=== PATIENT | female | born 1935 | race Caucasian/White ===

== ENCOUNTER 2016-12-26 22:04 | Emergency (ER) | payer MEDICARE, OTHER ==
[~2016-12-26] VITALS: Ht 160 cm; Wt 77.0 kg
[~2016-12-26 22:04] MED LIST: ALPR.25 PO; ARIC5TAB PO; BETH10TA PO; CARB25TA PO; CYMB30CA PO; DABI150 PO; GABA100C4 PO; LEVO75TA3 PO; MULT400T OR; TAB-TAB PO; VITA500S3 PO
[2016-12-26 22:15] VITALS: BP 128/68; PULSE 60; RESP 18; TEMP 97.4; O2SAT 98
[2016-12-26] MEDS ORDERED: LEVO75TA3 PO (22:30)
[2016-12-26] MEDS ORDERED: DULO1CAP2 PO (22:30)
[2016-12-26] MEDS ORDERED: MULT400T PO (22:30)
[2016-12-26] MEDS ORDERED: PRAD150C PO (22:30)
[2016-12-26] MEDS ORDERED: BETH25TA2 PO (22:30)
[2016-12-26] MEDS ORDERED: ALPR0.25 PO (22:36)
[2016-12-26] MEDS ORDERED: DONE10TA7 PO (22:36)
[2016-12-26] MEDS ORDERED: ROPI0.25 PO (22:36)
[2016-12-26] MEDS ORDERED: GABA100C4 PO (22:36)
[2016-12-26] MEDS ORDERED: MULT1CHW70 (22:36)
[2016-12-26] MEDS ORDERED: VITA500T49 PO (22:36)
[2016-12-26] MEDS ORDERED: CARB25TA9 PO (22:36)
--- NOTE | 2016-12-26 22:56 | PD ---
HPI Chief Complaint: Fall Time Seen by Provider: 22:43 Travel History International Travel<30 days: No Contact w/Intl Traveler<30days: No Traveled to known affect area: No History of Present Illness HPI The patient is an 82-year-old female that suffered a non-witnessed fall at [facility]. She hit the right side of her face. She complains of bilateral knee pain as well as right facial and some slight neck pain. She has a history of Parkinson's. She falls approximately once a month. She has no new focal neurologic change. She walks with a walker. PFSH Past Medical History Hx Anticoagulant Therapy: Yes (pradaxa) Atrial Fibrillation: Yes Autoimmune Disease: No Blood Disorders: No Heart Rhythm Problems: Yes Cancer: No Cardiac Catheterization: Yes Cardiovascular Problems: Yes (afib) Diabetes: No Diminished Hearing: No Hiatal Hernia: Yes Hypertension: Yes Psychiatric: No Immunizations Current: No Seizures: No ?: Not Past Surgical History Abdominal Surgery: Yes Appendectomy: Yes Cholecystectomy: Yes Coronary Stent: Yes Eye Surgery: Yes (EYE SURG TO RT EYE.CATARACT REPLACEMENT BILAT.) Genitourinary Surgery: No Gynecologic Surgery: Yes Hysterectomy: Yes Pacemaker: No Social History Alcohol Use: No Tobacco Use: No Substance Use: No Allergies-Medications (Allergen,Severity, Reaction): Coded Allergies: No Known Allergies (Verified , 12/26/16) Reported Meds & Prescriptions Reported Meds & Active Scripts Active Reported Multivitamin Adult (Multiple Vitamins W/ Minerals) 1 Chw Chw Vitamin B12 (Cyanocobalamin) 500 Mcg Tab 500 Mcg PO DAILY Ropinirole 0.25 Mg Tab 0.25 Mg PO TID Alprazolam 0.25 Mg Tab 0.25 Mg PO DAILY PRN Gabapentin 100 Mg Cap 200 Mg PO BID Donepezil 10 Mg Tab 10 Mg PO BID Carbidopa-Levodopa 25-100 Mg Tab 1 Tab PO Q8HR Dul[address] (Duloxetine HCl) 30 Mg Capdr 30 Mg PO DAILY Bethanechol 25 Mg Tab 12.5 Mg PO TID Levothyroxine (Levothyroxine Sodium) 75 Mcg Tab 75 Mcg PO DAILY Multaq (Dronedarone) 400 Mg Tab 400 Mg PO BID Pradaxa (Dabigatran) 150 Mg Cap 150 Mg PO BID Review of Systems Except as stated in HPI: all other systems reviewed are Neg Physical Exam Narrative GENERAL: The patient is alert, oriented 3 in no apparent distress. Her vital signs are normal. SKIN: Warm and dry. There are 2 abrasions, one on the right forehead and another on the right malar area. HEAD: Atraumatic. Normocephalic. Neither raccoon eyes nor bond sign is present. EYES: Pupils equal and round. No scleral icterus. No injection or drainage. ENT: No nasal bleeding or discharge. Mucous membranes pink and moist. NECK: Trachea midline. No JVD. No neck tenderness nor deformity is noted. CARDIOVASCULAR: Regular rate and rhythm. No murmur appreciated. RESPIRATORY: No accessory muscle use. Clear to auscultation. Breath sounds equal bilaterally. GASTROINTESTINAL: Abdomen soft, non-tender, nondistended. Hepatic and splenic margins not palpable. MUSCULOSKELETAL: No obvious deformities. No clubbing. No cyanosis. No edema. The left knee has slight contusion anteriorly around the patella. The right knee shows no contusion or swelling. There is tenderness on the anterior portion of both knees but no deformity is noted. On both knees, collaterals, drawer and Shell show intact ligaments. NEUROLOGICAL: Awake and alert. No obvious cranial nerve deficits. Motor grossly within normal limits. Normal speech. PSYCHIATRIC: Appropriate mood and affect; insight and judgment normal. Data Data Last Documented VS Vital Signs Date Time Temp Pulse Resp B/P Pulse Ox O2 Delivery O2 Flow Rate FiO2 12/26/16 22:15 97.4 60 18 128/[address] Brain W/O Iv Contrast(Rout) (12/26/16 22:43) Ct Cerv Spine W/O Contrast (12/26/16 22:43) Knee, Ltd (1 Or 2vws) (12/26/16 22:43) Knee, Complete (4vws) (12/26/16 22:43) [facility] Medical Decision Making Medical Screen Exam Complete: Yes Emergency Medical Condition: Yes Medical Record Reviewed: Yes Interpretation(s) X-rays of both knees are normal. The CT scan of the cervical spine and brain is normal. Differential Diagnosis Fracture face, intracranial bleed, cervical spine fracture, cervical spine dislocation, multiple contusions of face, fracture knees, contusion knees Narrative Course The patient has multiple contusions of the face and knees. No evidence of fracture is found. No evidence of dislocation of the cervical spine is found. Diagnosis Primary Impression: Multiple contusions Additional Impression: Parkinson's disease dementia Additional Instructions: As we discussed, all of the x-rays/CT scans are normal. She does fall on a monthly basis and the senior care may work on changing the environment/ lighting or reasons she loses balance and falls. Follow-up with her primary care physician. Med/Other Pt SpecificInfo: No Change to Meds Disposition: 03 DISCHARGE TO SNF Condition: Stable Tino Lezama MD Dec 26, 2016 22:56
--- NOTE | 2016-12-26 23:09 | RADHPO ---
EXAM DATE/TIME: 12/26/2016 22:52 [facility] COMPARISON: No previous studies available for comparison. INDICATIONS : Right knee pain after falling on knee. MEDICAL HISTORY : None. SURGICAL HISTORY : None. ENCOUNTER: Initial ACUITY: 1 day PAIN SCORE: 4/10 LOCATION: Right anterior knee. FINDINGS: There is mild osteoarthritis of the knee without evidence for fracture or effusion. No dislocation. CONCLUSION: No acute disease. Brian cOonnor MD on December 26, 2016 at 23:07 Board Certified Radiologist. This report was verified electronically.
--- NOTE | 2016-12-26 23:10 | RADHPO ---
EXAM DATE/TIME: 12/26/2016 22:54 [facility] COMPARISON: KNEE RIGHT LTD (1 OR 2 VWS), December 26, 2016, 22:52. INDICATIONS : Left knee pain after falling on knee. MEDICAL HISTORY : None. SURGICAL HISTORY : None. ENCOUNTER: Initial ACUITY: 1 day PAIN SCORE: 4/10 LOCATION: Left knee. FINDINGS: There is mild osteoarthritis without evidence for fracture or dislocation. No effusion. CONCLUSION: No acute disease. Brian Oconnor MD on December 26, 2016 at 23:07 Board Certified Radiologist. This report was verified electronically.
--- NOTE | 2016-12-26 23:33 | RADHPO ---
EXAM DATE/TIME: 12/26/2016 23:04 [facility] COMPARISON: CT BRAIN W/O CONTRAST, March 09, 2016, 23:21. INDICATIONS : Fall. Right sided head and neck trauma. RADIATION DOSE: 61.2 CTDIvol (mGy) MEDICAL HISTORY : Hypertension. Afib. SURGICAL HISTORY : Coronary artery stent. Bilateral cataract replacement. ENCOUNTER: Initial ACUITY: 1 day PAIN SCALE: 6/10 LOCATION: Right cranial TECHNIQUE: Multiple contiguous axial images were obtained of the head. Using automated exposure control and adj ustment of the mA and/or kV according to patient size, radiation dose was kept as low as reasonably a chievable to obtain optimal diagnostic quality images. FINDINGS: Mild atrophy and patchy white matter disease is stable. No hemorrhage, infarct, or mass. No fractures . CONCLUSION: No acute disease. Brian Oconnor MD on December 26, 2016 at 23:31 Board Certified Radiologist. This report was verified electronically.
--- NOTE | 2016-12-26 23:41 | RADHPO ---
EXAM DATE/TIME: 12/26/2016 23:04 [facility] COMPARISON: CT CERVICAL SPINE W/O CONTRAST, March 09, 2016, 23:21. INDICATIONS : Fall. Right sided head and neck trauma. RADIATION DOSE: 26.45 CTDIvol (mGy) MEDICAL HISTORY : Hypertension. Afib. SURGICAL HISTORY : Coronary artery stent. ENCOUNTER: Initial ACUITY: 1 day PAIN SCALE: 7/10 LOCATION: Right neck TECHNIQUE: Volumetric scanning of the cervical spine was performed. Multiplanar reconstructions in the sagittal, coronal and oblique axial planes were performed. Using automated exposure control and adjustment o f the mA and/or kV according to patient size, radiation dose was kept as low as reasonably achievable to obtain optimal diagnostic quality images. FINDINGS: Grade 1 anterolisthesis of C4 on C5 again seen appear severe displacement at C5-6 and C6-7. No prever tebral soft tissue swelling or compression deformity. Multilevel osteophyte formation is seen at C5-C 7. Odontoid process is intact. Uncovertebral hypertrophy at C5-6 and C6-7 noted. The carotid artery c alcifications are noted bilaterally. Broad-based protrusion at C3-4 with mild canal stenosis. CONCLUSION: Degenerative changes are seen without evidence for acute fracture. Brian Oconnor MD on December 26, 2016 at 23:38 Board Certified Radiologist. This report was verified electronically.
[2016-12-27 00:05] VITALS: BP 122/68
== END 2016-12-27 00:05 ==
LOC: PHEFT 22:04
DX: S00.83XA Contusion of other part of head, initial encounter (principal); S80.02XA Contusion of left knee, initial encounter; S80.01XA Contusion of right knee, initial encounter; M54.2 Cervicalgia; G20 Parkinson's disease; F02.80 Dementia in other diseases classified elsewhere, unspecified severity, without behavioral disturbance, psychotic disturbance, mood disturbance, and anxiety; I10 Essential (primary) hypertension; I48.91 Unspecified atrial fibrillation; Z79.01 Long term (current) use of anticoagulants; W19.XXXA Unspecified fall, initial encounter; Y92.129 Unspecified place in nursing home as the place of occurrence of the external cause
CPT/HCPCS: 70450; 72125; 73560; 73564

== ENCOUNTER 2017-04-03 11:06 | Emergency (ER) | payer MEDICARE, OTHER ==
[~2017-04-03] VITALS: Ht 162.6 cm; Wt 65.0 kg
[~2017-04-03 11:06] MED LIST changes: -ALPR.25 PO; +ALPR0.25 PO; -ARIC5TAB PO; -BETH10TA PO; +BETH25TA2 PO; -CARB25TA PO; +CARB25TA9 PO; -CYMB30CA PO; -DABI150 PO; +DONE10TA7 PO; +DULO1CAP2 PO; +MULT1CHW70; -MULT400T OR; +MULT400T PO; +PRAD150C PO; +ROPI0.25 PO; -TAB-TAB PO; -VITA500S3 PO; +VITA500T49 PO
[2017-04-03 11:08] VITALS: BP 87/61; PULSE 90; RESP 16; TEMP 98.1; O2SAT 96
[2017-04-03] MEDS ORDERED: MULT-65 PO (11:37)
[2017-04-03] MEDS ORDERED: CARB25TA12 PO (11:37)
[2017-04-03 11:44] VITALS: BP 76/52
[2017-04-03 12:03] VITALS: BP 90/54
--- NOTE | 2017-04-03 12:33 | PD ---
HPI Chief Complaint: Injury Time Seen by Provider: 11:19 Travel History International Travel<30 days: No Contact w/Intl Traveler<30days: No Traveled to known affect area: No History of Present Illness HPI 81 F arrives with right forearm and hand swelling. She experienced a mechanica fall yesterday. There is no head trauma or loss of consciousness. Patient also complains of pain in the hips bilaterally. Normally she ambulates with the walker. Evidently her toes became stuck underneath the guard rail leading to her fall backwards. The patient does not remember if she fell onto an outstretched hand. There is minimal pain and swelling in the region of the DRUJ on the right side. Daughter states the patient's blood pressure is low in the mornings. Pt takes Pradaxa for atrial fibrillation. PFSH Past Medical History Hx Anticoagulant Therapy: Yes (PRADAXA) Atrial Fibrillation: Yes Autoimmune Disease: No Blood Disorders: No Heart Rhythm Problems: Yes Cancer: No Cardiac Catheterization: Yes Cardiovascular Problems: Yes (afib) Cerebrovascular Accident: Yes (CVA) Diabetes: No Diminished Hearing: No Hiatal Hernia: Yes Hypertension: Yes Psychiatric: No Immunizations Current: No Seizures: No ?: Not Past Surgical History Abdominal Surgery: Yes Appendectomy: Yes Cholecystectomy: Yes Coronary Stent: Yes Eye Surgery: Yes (EYE SURG TO RT EYE.CATARACT REPLACEMENT BILAT.) Genitourinary Surgery: No Gynecologic Surgery: Yes Hysterectomy: Yes Pacemaker: No Social History Alcohol Use: No Tobacco Use: No Substance Use: No Allergies-Medications (Allergen,Severity, Reaction): Coded Allergies: No Known Allergies (Verified , 04/03/17) Reported Meds & Prescriptions Reported Meds & Active Scripts Active Reported Multi-Vitamin Daily (Multiple Vitamin) 1 Tab Tab 1 Tab PO DAILY Carbidopa-Levodopa 25-250 Mg Tab 1 Tab PO Q8HR Vitamin B12 (Cyanocobalamin) 500 Mcg Tab 500 Mcg PO DAILY Ropinirole 0.25 Mg Tab 0.25 Mg PO TID Alprazolam 0.25 Mg Tab 0.125 Mg PO DAILY PRN Gabapentin 100 Mg Cap 200 Mg PO BID Donepezil 10 Mg Tab 10 Mg PO BID Duloxetine DR (Duloxetine HCl) 30 Mg Capdr 30 Mg PO DAILY Bethanechol 25 Mg Tab 12.5 Mg PO TID Levothyroxine (Levothyroxine Sodium) 75 Mcg Tab 75 Mcg PO DAILY Multaq (Dronedarone) 400 Mg Tab 400 Mg PO BID Pradaxa (Dabigatran) 150 Mg Cap 150 Mg PO BID Review of Systems Except as stated in HPI: all other systems reviewed are Neg Physical Exam Narrative GENERAL: 81-year-old female pleasant well-nourished well-developed SKIN: Skin tear along proximal radial aspect of R forearm, approx 6cm long by 3cm wide. Minimal generalized swelling distal forearm in and about DRUJ and dorsal hand. No snuffbox tenderness. HEAD: Atraumatic. Normocephalic. EYES: Pupils equal and round. No scleral icterus. No injection or drainage. ENT: No nasal bleeding or discharge. Mucous membranes pink and moist. NECK: Trachea midline. No JVD. CARDIOVASCULAR: Regular rate and rhythm. No murmur appreciated. RESPIRATORY: No accessory muscle use. Clear to auscultation. Breath sounds equal bilaterally. GASTROINTESTINAL: Abdomen soft, non-tender, nondistended. Hepatic and splenic margins not palpable. MUSCULOSKELETAL: No obvious deformities. No clubbing. No cyanosis. No edema. No tenderness with axial load. NEUROLOGICAL: Awake and alert. No obvious cranial nerve deficits. Motor grossly within normal limits. Normal speech. PSYCHIATRIC: Appropriate mood and affect; insight and judgment normal. Data Data Last Documented VS Vital Signs Date Time Temp Pulse Resp B/P Pulse Ox O2 Delivery O2 Flow Rate FiO2 04/03/17 12:03 90/54 04/03/17 11:08 98.1 90 16 96 VS reviewed Orders Forearm (2vws) (04/03/17 11:29) Hand, Complete ([id number]) (04/03/17 11:29) Ice/Cold Pack (04/03/17 11:29) Pelvis, Ap Only (Routine) (04/03/17 ) MDM Medical Decision Making Medical Screen Exam Complete: Yes Emergency Medical Condition: Yes Medical Record Reviewed: Yes Differential Diagnosis R forearm fracture, hand fracture, pelvis fracture, hip fracture Narrative Course Last 24 hours Impressions Radius/Ulna X-Ray 04/03/17 1129 Signed Impressions: Service Date/Time: Monday, April 03, 2017 11:49 - CONCLUSION: No acute disease. Chandler Deutsch MD Hand X-Ray 04/03/17 1129 Signed Impressions: Service Date/Time: Monday, April 03, 2017 11:46 - CONCLUSION: No acute disease. Chandler Deutsch MD Pelvis X-Ray 04/03/17 0000 Signed Impressions: Service Date/Time: Monday, April 03, 2017 11:52 - CONCLUSION: No acute disease. Chandler Deutsch MD The patient is resting comfortably and feels better, is alert and in no distress. The patients results and examination findings were discussed. The repeat examination is unremarkable and benign. The history, exam, diagnostic testing, and current condition do not suggest any significant pathology to warrant further testing, continued ED treatment, admission, or surgical evaluation at this point. The vital signs have been stable. The patient does not have uncontrollable pain, intractable vomiting, or other significant symptoms. The patient's condition is stable and appropriate for discharge. The patient will pursue further outpatient evaluation with a primary care physician or other designated or consulting physician as indicated in the discharge instructions. The patient expressed understanding and was agreeable with this plan. Hypotension is normal for patient according to daughter. Trending of BP over last five years reveals multiple episodes of significant hypotension c/w today's presentation. Diagnosis Primary Impression: Fall Qualified Code: W19.XXXA - Fall, initial encounter Additional Impression: Contusion Qualified Code: S50.11XA - Contusion of right forearm, initial encounter Referrals: DR MARTINEZ 2 days Additional Instructions: You have a choice when it comes to health care, and we are glad that you chose [facility]. Hopefully, we have met your expectations on today's visit. You are welcome to return to [facility] at any time, as we are committed to meeting the health care needs of our community. Med/Other Pt SpecificInfo: No Change to Meds Disposition: 01 DISCHARGE HOME Condition: Stable Willy Stokes MD Apr 03, 2017 12:33
--- NOTE | 2017-04-03 12:36 | RADRPT ---
EXAM DATE/TIME: 04/03/2017 11:49 [facility] COMPARISON: No previous studies available for comparison. INDICATIONS : Fell, right forearm pain MEDICAL HISTORY : parkinsons SURGICAL HISTORY : None. ENCOUNTER: Initial ACUITY: 1 day PAIN SCORE: 3/10 LOCATION: Right forearm FINDINGS: Two view examination of the right forearm demonstrates no evidence of fracture or dislocation. Bony mineralization is normal. The soft tissue structures are intact. CONCLUSION: No acute disease. Chandler Deutsch MD on April 03, 2017 at 12:34 Board Certified Radiologist. This report was verified electronically.
--- NOTE | 2017-04-03 12:36 | RADRPT ---
EXAM DATE/TIME: 04/03/2017 11:46 [facility] COMPARISON: No previous studies available for comparison. INDICATIONS : Fell, hand pain MEDICAL HISTORY : parkinsons SURGICAL HISTORY : None. ENCOUNTER: Initial ACUITY: 1 day PAIN SCORE: 3/10 LOCATION: Right hand FINDINGS: Three view examination of the right hand demonstrates no soft tissue swelling, dislocation, or fractu re. The carpal bones appear intact. The interphalangeal and metacarpophalangeal joints are intact. Bony mineralization is normal. CONCLUSION: No acute disease. Chandler Deutsch MD on April 03, 2017 at 12:31 Board Certified Radiologist. This report was verified electronically.
--- NOTE | 2017-04-03 12:37 | RADRPT ---
EXAM DATE/TIME: 04/03/2017 11:52 [facility] COMPARISON: PELVIS AP ONLY, March 09, 2016, 23:07. INDICATIONS : Fell, pelvic area pain MEDICAL HISTORY : parkinsons SURGICAL HISTORY : None. ENCOUNTER: Initial ACUITY: 1 day PAIN SCORE: 3/10 LOCATION: Bilateral pelvis FINDINGS: A single frontal view of the pelvis demonstrates no evidence of fracture. The bony pelvic ring is in tact. Bony mineralization is normal. The soft tissues are intact. There is degenerative change in the lower lumbar spine. CONCLUSION: No acute disease. Chandler Deutsch MD on April 03, 2017 at 12:34 Board Certified Radiologist. This report was verified electronically.
== END 2017-04-03 13:06 | disposition home or self-care (01) ==
LOC: PHED 11:06
DX: S50.11XA Contusion of right forearm, initial encounter (principal); W19.XXXA Unspecified fall, initial encounter; I48.91 Unspecified atrial fibrillation; Z79.01 Long term (current) use of anticoagulants; Z86.73 Personal history of transient ischemic attack (TIA), and cerebral infarction without residual deficits; I10 Essential (primary) hypertension
CPT/HCPCS: 72170; 73090; 73130; 99284

== ENCOUNTER 2017-04-15 19:38 | Inpatient (IN) | payer MEDICARE, OTHER ==
[~2017-04-15] VITALS: Ht 152.4 cm; Wt 70.8 kg
[~2017-04-15 19:38] MED LIST changes: +CARB25TA12 PO; -CARB25TA9 PO; +MULT-65 PO; -MULT1CHW70
[2017-04-15 20:02] VITALS: BP 92/59; PULSE 79; RESP 18; TEMP 98.5; O2SAT 93
--- NOTE | 2017-04-15 20:24 | PD ---
HPI Chief Complaint: GI Complaint Time Seen by Provider: 20:17 Travel History International Travel<30 days: No Contact w/Intl Traveler<30days: No Traveled to known affect area: No History of Present Illness HPI This 81-year-old female is brought in because of rectal bleeding. She resides at [place]. She has a history of Parkinson's disease. She has a history of atrial fibrillation and is on Pradaxa. He has had some trouble with hemorrhoids in the past. She has had some bright red blood per rectum today. This has been persistent for several hours. She is not having any abdominal pain. She had a colonoscopy 5 years ago which was normal. Her son says she has been hallucinating recently PFSH Past Medical History Hx Anticoagulant Therapy: Yes (PRADAXA) Atrial Fibrillation: Yes Autoimmune Disease: No Blood Disorders: No Heart Rhythm Problems: Yes Cancer: No Cardiac Catheterization: Yes Cardiovascular Problems: Yes (afib) Cerebrovascular Accident: Yes (CVA) Diabetes: No Diminished Hearing: No Hiatal Hernia: Yes Hypertension: Yes Psychiatric: No Immunizations Current: No Seizures: No Past Surgical History Abdominal Surgery: Yes Appendectomy: Yes Cholecystectomy: Yes Coronary Stent: Yes Eye Surgery: Yes (EYE SURG TO RT EYE.CATARACT REPLACEMENT BILAT.) Genitourinary Surgery: No Gynecologic Surgery: Yes Hysterectomy: Yes Pacemaker: No Social History Alcohol Use: No Tobacco Use: No Substance Use: No Allergies-Medications (Allergen,Severity, Reaction): Coded Allergies: No Known Allergies (Verified , 04/03/17) Reported Meds & Prescriptions Reported Meds & Active Scripts Active Reported Multi-Vitamin Daily (Multiple Vitamin) 1 Tab Tab 1 Tab PO DAILY Carbidopa-Levodopa 25-250 Mg Tab 1 Tab PO Q8HR Vitamin B12 (Cyanocobalamin) 500 Mcg Tab 500 Mcg PO DAILY Ropinirole 0.25 Mg Tab 0.25 Mg PO TID Alprazolam 0.25 Mg Tab 0.125 Mg PO DAILY PRN Gabapentin 100 Mg Cap 200 Mg PO BID Donepezil 10 Mg Tab 10 Mg PO BID Duloxetine DR (Duloxetine HCl) 30 Mg Capdr 30 Mg PO DAILY Bethanechol 25 Mg Tab 12.5 Mg PO TID Levothyroxine (Levothyroxine Sodium) 75 Mcg Tab 75 Mcg PO DAILY Multaq (Dronedarone) 400 Mg Tab 400 Mg PO BID Pradaxa (Dabigatran) 150 Mg Cap 150 Mg PO BID Review of Systems General / Constitutional: No: Fever, Chills Eyes: No: Diploplia HENT: No: Headaches, Vertigo Cardiovascular: No: Chest Pain or Discomfort Respiratory: No: Shortness of Breath Gastrointestinal: Positive: Hematochezia, No: Nausea, Vomiting, Abdominal Pain Genitourinary: No: Urgency, Frequency Musculoskeletal: No: Myalgias, Arthralgias Skin: No Rash Neurologic: Positive: Weakness, Tremor Psychiatric: No: Anxiety Endocrine: No: Heat Intolerance, Cold Intolerance Physical Exam Narrative GENERAL: Well-developed female SKIN: Focused skin assessment warm/dry. HEAD: Atraumatic. Normocephalic. EYES: Pupils equal and round. No scleral icterus. No injection or drainage. ENT: No nasal bleeding or discharge. Mucous membranes pink and moist. NECK: Trachea midline. No JVD. CARDIOVASCULAR: Irregular rate and rhythm. No murmur appreciated. RESPIRATORY: No accessory muscle use. Clear to auscultation. Breath sounds equal bilaterally. GASTROINTESTINAL: Abdomen soft, non-tender, nondistended. Hepatic and splenic margins not palpable. She has been incontinent of stool which does have some bright red blood present. On rectal exam no masses are felt. Stool is brown and guaiac positive MUSCULOSKELETAL: No obvious deformities. No clubbing. No cyanosis. No edema. NEUROLOGICAL: Awake and alert. No obvious cranial nerve deficits. She has slow movements consistent with her Parkinson's disease PSYCHIATRIC: Appropriate mood and affect; insight and judgment normal. Data Data Last Documented VS Vital Signs Date Time Temp Pulse Resp B/P Pulse Ox O2 Delivery O2 Flow Rate FiO2 04/15/17 20:15 80 16 04/15/17 20:02 98.5 92/59 93 Orders Complete Blood Count With Diff (04/15/17 20:17) Basic Metabolic Panel (Bmp) (04/15/17 20:17) Ua Includes Microscopic (04/15/17 20:17) Type And Screen (04/15/17 20:17) Cath For Specimen (04/15/17 20:31) Sodium Chlor 0.9% 1000 Ml Inj (Ns 1000 M (04/15/17 20:45) Labs Laboratory Tests Test 04/15/17 04/15/17 20:20 21:00 White Blood Count 9.8 TH/MM3 Red Blood Count 4.84 MIL/MM3 Hemoglobin 14.7 GM/DL Hematocrit 44.3 % Mean Corpuscular Volume 91.6 FL Mean Corpuscular Hemoglobin 30.4 PG Mean Corpuscular Hemoglobin 33.1 % Concent Red Cell Distribution Width 12.9 % Platelet Count 292 TH/MM3 Mean Platelet Volume 7.6 FL Neutrophils (%) (Auto) 76.7 % Lymphocytes (%) (Auto) 15.0 % Monocytes (%) (Auto) 6.5 % Eosinophils (%) (Auto) 1.3 % Basophils (%) (Auto) 0.5 % Neutrophils # (Auto) 7.6 TH/MM3 Lymphocytes # (Auto) 1.5 TH/MM3 Monocytes # (Auto) 0.6 TH/MM3 Eosinophils # (Auto) 0.1 TH/MM3 Basophils # (Auto) 0.0 TH/MM3 CBC Comment DIFF FINAL Differential Comment Sodium Level 143 MEQ/L Potassium Level 4.2 MEQ/L Chloride Level 108 MEQ/L Carbon Dioxide Level 27.1 MEQ/L Anion Gap 8 MEQ/L Blood Urea Nitrogen 30 MG/DL Creatinine 1.00 MG/DL Estimat Glomerular Filtration 53 ML/MIN Rate Random Glucose 131 MG/DL Calcium Level 8.8 MG/DL Urine Color YELLOW Urine Turbidity CLEAR Urine pH 6.0 Urine Specific [place] 1.026 Urine Protein NEG mg/dL Urine Glucose (UA) NEG mg/dL Urine Ketones TRACE mg/dL Urine Occult Blood SMALL Urine Nitrite NEG Urine Bilirubin NEG Urine Leukocyte Esterase TRACE Urine RBC 20-24 /hpf Urine WBC 25-49 /hpf Urine WBC Clumps FEW Urine Squamous Epithelial 0-5 /hpf Cells Urine Bacteria MANY /hpf MDM Medical Decision Making Medical Screen Exam Complete: Yes Emergency Medical Condition: Yes Medical Record Reviewed: Yes Differential Diagnosis Differential includes GI bleed, coagulopathy, Narrative Course Hemoglobin is 14.7. Urinalysis shows 20-24 white cells and 25-49 white red cells. Patient does have heme positive stool and is on Pradaxa. Diagnosis Primary Impression: GI bleed Qualified Code: K62.5 - Gastrointestinal hemorrhage associated with anorectal source Additional Impression: Urinary tract infection Qualified Code: N39.0 - Urinary tract infection without hematuria, site unspecified Admitting Information Admitting Physician Requests: Observation Kamaljit Veras MD Apr 15, 2017 20:24
[2017-04-15] MEDS ORDERED: SODIUM CHLOR 0.9% 1000 ML INJ 1,000 ML IV SCH (20:45)
[2017-04-15 21:00] VITALS: BP 94/66; PULSE 82; RESP 16; O2SAT 95
[2017-04-15 21:05] LABS: AUTOMATED NEUTROPHIL # 7.6 TH/MM3 (1.8-7.7); BASOPHIL % 0.5 % (0.0-2.0); EOSINOPHIL # 0.1 TH/MM3 (0-0.4); EOSINOPHIL % 1.3 % (0.0-4.0); HEMATOCRIT 44.3 % (35.0-46.0); HEMO FLAGS DIFF FINAL; LYMPHOCYTE # 1.5 TH/MM3 (1.0-4.8); MEAN CELL VOLUME 91.6 FL (80.0-100.0); MEAN CORPUSCULAR HEMOGLOBIN 30.4 PG (27.0-34.0); MEAN CORPUSCULAR HGB CONC 33.1 % (32.0-36.0); MONO % 6.5 % (0.0-8.0); NEUT % 76.7 % (16.0-70.0); PLATELET COUNT 292 TH/MM3 (150-450); RED BLOOD COUNT 4.84 MIL/MM3 (4.00-5.30); RED CELL DISTRIBUTION WIDTH 12.9 % (11.6-17.2); WHITE BLOOD COUNT 9.8 TH/MM3 (4.0-11.0)
[2017-04-15 21:12] LABS: POTASSIUM 4.2 MEQ/L (3.5-5.1)
[2017-04-15 21:14] LABS: BICARBONATE 27.1 MEQ/L (21.0-32.0)
[2017-04-15 21:29] LABS: BLOOD, URINE SMALL (NEG); GLUCOSE,URINE NEG (NEG); KETONE, URINE TRACE mg/dL (NEG); NITRITE,URINE NEG (NEG)
[2017-04-15 21:31] LABS: URINE COLOR YELLOW (YELLW/STRAW)
[2017-04-15 21:33] LABS: BACTERIA, URINE MANY /hpf; SQUAMOUS EPITHELIAL CELL URINE 0-5 /hpf (0-5)
[2017-04-15] MEDS ORDERED: cefTRIAXone INJ 1,000 MG in SODIUM CHLORIDE 0.9% INJ 100 ML IV ONE (21:45)
[2017-04-15] MEDS ORDERED: NALOXONE HCL 0.4 MG/ML AMP IV PRN (22:00)
[2017-04-15] MEDS ORDERED: BISACODYL 10 MG SUPP RECTAL PRN (22:00)
[2017-04-15] MEDS ORDERED: ACETAMINOPHEN 325 MG TAB PO PRN (22:00)
[2017-04-15] MEDS ORDERED: MAGNESIUM HYDROXIDE SUSP 30 ML CUP PO PRN (22:00)
[2017-04-15] MEDS ORDERED: ONDANSETRON HCL 4 MG/2 ML VIAL IVP PRN (22:00)
[2017-04-15] MEDS ORDERED: LACTULOSE SYRUP 20 GM/30 ML CUP PO PRN (22:00)
[2017-04-15] MEDS ORDERED: SENNOSIDES 8.6 MG TAB PO PRN (22:00)
[2017-04-15] MEDS ORDERED: TYLE325T PO (22:16)
[2017-04-15 22:25] VITALS: BP 117/79; PULSE 80; RESP 16; O2SAT 94
[2017-04-15] MEDS: SODIUM CHLOR 0.9% 1000 ML INJ 1,000 ML IV SCH (22:25)
[2017-04-15 23:50] VITALS: BP 106/64; PULSE 84; RESP 16; O2SAT 95
[2017-04-16] VITALS (7 sets, daily range): BP systolic 121–162; BP diastolic 80–100; PULSE 56–119; RESP 12–20; TEMP 96.2–98.9; O2SAT 95–98
[2017-04-16 06:33] LABS: AUTOMATED NEUTROPHIL # 5.3 TH/MM3 (1.8-7.7); BASOPHIL % 0.5 % (0.0-2.0); EOSINOPHIL # 0.2 TH/MM3 (0-0.4); EOSINOPHIL % 3.1 % (0.0-4.0); HEMATOCRIT 38.8 % (35.0-46.0); HEMO FLAGS DIFF FINAL; LYMPH % 19.8 % (9.0-44.0); LYMPHOCYTE # 1.5 TH/MM3 (1.0-4.8); MEAN CELL VOLUME 90.6 FL (80.0-100.0); MEAN CORPUSCULAR HGB CONC 34.2 % (32.0-36.0); MONO % 8.5 % (0.0-8.0); NEUT % 68.1 % (16.0-70.0); PLATELET COUNT 223 TH/MM3 (150-450); RED BLOOD COUNT 4.29 MIL/MM3 (4.00-5.30); RED CELL DISTRIBUTION WIDTH 12.8 % (11.6-17.2); WHITE BLOOD COUNT 7.7 TH/MM3 (4.0-11.0)
[2017-04-16] MEDS ORDERED: PILL SPLITTER OTHER PRN (15:00)
[2017-04-16] MEDS ORDERED: ALPRAZolam 0.25 MG TAB PO PRN (15:00)
--- NOTE | 2017-04-16 15:16 | HHI.HP ---
[facility] Michelle Chatman MD Admission Diagnosis GI BLEED, COAGULOPATHY, UTI Diagnoses: (1) Rectal bleeding Diagnosis: Principal (2) Hemorrhoid Diagnosis: Principal (3) Coagulopathy Diagnosis: Principal (4) Atrial fibrillation Diagnosis: Secondary (5) Hypertension Diagnosis: Secondary (6) Parkinson disease Diagnosis: Secondary (7) Dementia (8) History of CVA (cerebrovascular accident) Diagnosis: Secondary (9) Chronic kidney disease, stage III (moderate) Diagnosis: Secondary Chief Complaint: Rectal bleeding Travel History International Travel<30 Days: No Contact w/Intl Traveler <30 Da: No Traveled to Known Affected Are: No History of Present Illness Written by Kieran Lezama, acting as scribe for Dr. Mcgee on 04/16/17 at 15: 03. This note was transcribed by scribe Kieran MIXON. I, Dr. Rosy Mcgee personally performed the history, physical exam, and medical decision making; and confirmed the accuracy of the information in the transcribed note. Authenticated by Dr. Rosy Mcgee on 04/16/17 at 15:03. 81-year-old female with known history of Parkinson's, dementia, hypertension, atrial fibrillation, history of rectal bleeding, history of hemorrhoids, chronic kidney disease stage III, history of CVA who resides at a local [facility] who was brought to the hospital because of rectal bleeding. Patient does have some Parkinson's/dementia and information was taken from patient and family at bedside. Patient does have history of recurrent rectal bleeding usually secondary to hemorrhoids. Family indicates the patient does have hemorrhoids in its rectal bleeding periodically and he usually goes away on its own. However patient started having rectal bleeding yesterday proxy 6 PM and lasted until 7:30 PM and because the bleeding did not stop they brought the patient to the hospital for evaluation. The bleeding has stopped since being in the hospital. 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 Villela. The patient is on Pradaxa for anticoagulation and is at high risk for continued bleeding. Because of her increased risk she was admitted the hospital for continued management and observation. Thus far patient has dropped approximately 1.5 g of hemoglobin since being in the hospital. However she has not had any recurrent rectal bleeding. GI consultation has been requested. Patient indicates that she has had some shortness of breath, she denies any chest pain, abdominal pain, nausea, vomiting, lightheadedness, dizziness. During workup patient was found to have significant urinary tract infection and was started on treatment. Review of Systems Constitutional: DENIES: Diaphoretic episodes, Fatigue, Fever, Weight gain, Weight loss, Chills, Dizziness, Change in appetite, Night Sweats Eyes: DENIES: Blurred vision, Diplopia, Eye inflammation, Eye pain, Vision loss , Double Vision Ears, nose, mouth, throat: DENIES: Hearing loss, Nasal discharge, Throat pain, Ear Pain, Running Nose, Sinus Pain Respiratory: COMPLAINS OF: Shortness of breath, DENIES: Apneas, Cough, Snoring , Wheezing, Hemoptysis, Sputum production Cardiovascular: DENIES: Chest pain, Palpitations, Syncope, Dyspnea on Exertion , Lower Extremity Edema, Orthopnea Gastrointestinal: COMPLAINS OF: Bloody stools, DENIES: Abdominal pain, Black stools, Constipation, Diarrhea, Nausea, Vomiting, Difficulty Swallowing, Anorexia Neurologic: DENIES: Abnormal gait, Headache, Localized weakness, Paresthesias, Seizures, Speech Problems, Tremor, Poor Balance Past Family Social History Past Medical History Hypertension Chronic atrial fibrillation History CVA History of rectal bleeding History of hemorrhoids Parkinson's Dementia Gastroesophageal reflux Coronary artery disease status post stenting Past Surgical History Cataract surgery Cardiac catheterization with stenting Gastric surgery with dilatation, bypass Appendectomy Cholecystectomy Right breast calcification removal Hysterectomy Reported Medications Reported Meds & Active Scripts Active Reported Tylenol (Acetaminophen) 325 Mg Tab 650 Mg PO Q4H PRN Multi-Vitamin Daily (Multiple Vitamin) 1 Tab Tab 1 Tab PO DAILY Carbidopa-Levodopa 25-250 Mg Tab 1 Tab PO Q8HR Vitamin B12 (Cyanocobalamin) 500 Mcg Tab 500 Mcg PO DAILY Ropinirole 0.25 Mg Tab 0.25 Mg PO TID Alprazolam 0.25 Mg Tab 0.125 Mg PO DAILY PRN Gabapentin 100 Mg Cap 200 Mg PO BID Donepezil 10 Mg Tab 10 Mg PO BID Duloxetine DR (Duloxetine HCl) 30 Mg Capdr 30 Mg PO DAILY Bethanechol 25 Mg Tab 12.5 Mg PO TID Levothyroxine (Levothyroxine Sodium) 75 Mcg Tab 75 Mcg PO DAILY Multaq (Dronedarone) 400 Mg Tab 400 Mg PO BID Pradaxa (Dabigatran) 150 Mg Cap 150 Mg PO BID Allergies: Coded Allergies: No Known Allergies (Verified , 04/03/17) Family History Reviewed is significant for mother having Parkinson's, father with diabetes Social History Patient denies any tobacco, alcohol or illicit drugs Physical Exam Vital Signs Vital Signs Date Time Temp Pulse Resp B/P Pulse Ox O2 Delivery O2 Flow Rate FiO2 04/16/17 12:00 97.5 98 19 131/89 96 04/16/17 08:00 97.7 109 20 144/96 95 04/16/17 05:34 96.2 119 18 137/95 97 04/16/17 01:15 98.9 102 12 121/80 98 04/16/17 01:00 94 04/15/17 23:50 84 16 106/64 95 Room Air 04/15/17 22:25 80 16 117/79 94 Room Air 04/15/17 21:00 82 16 94/66 95 Room Air 04/15/17 20:15 80 16 04/15/17 20:02 98.5 79 18 92/59 93 Physical Exam GENERAL: Well-developed, well-nourished, in no acute distress. alert and orientated 2 HEENT: Head is normocephalic without any lesions or masses noted. Facial features are symmetric. Eyes: Pupils equal round reactive to light. Extraocular muscles are intact. Conjunctivae were clear. Oropharyngeal: Pharynx without any erythema edema. Tongue is midline without deviation. Buccal mucosa is moist without any masses or lesions NECK: Supple without any masses. Trachea midline no deviation. No JVD, no bruits are appreciated CARDIAC: Regular rhythm, regular rate. S1/S2 are heard. No murmurs gallops or rubs. LUNGS: Clear to auscultation bilaterally. No wheeze, rhonchi or rales. No use of accessory muscles on inspiration or expiration. ABDOMEN: Soft, nontender. Nondistended. Bowel sounds heard in all 4 quadrants. No organomegaly or masses. Negative rebound, negative guarding EXTREMITIES: No edema, pulses are equal bilaterally. No cyanosis or clubbing NEUROLOGY: Mood and affect appear appropriate. Cranial nerves II through XII grossly intact. Muscle strength 5/5 in upper and lower extremities bilaterally. Deep tendon reflexes are 2+ in upper and lower extremities bilaterally. Laboratory Laboratory Tests Test 04/15/17 04/15/17 04/15/17 04/16/17 20:20 20:46 21:00 06:00 White Blood Count 9.8 7.7 Red Blood Count 4.84 4.29 Hemoglobin 14.7 13.3 Hematocrit 44.3 38.8 Mean Corpuscular Volume 91.6 90.6 Mean Corpuscular Hemoglobin 30.4 31.0 Mean Corpuscular Hemoglobin 33.1 34.2 Concent Red Cell Distribution Width 12.9 12.8 Platelet Count 292 223 Mean Platelet Volume 7.6 7.2 Neutrophils (%) (Auto) 76.7 68.1 Lymphocytes (%) (Auto) 15.0 19.8 Monocytes (%) (Auto) 6.5 8.5 Eosinophils (%) (Auto) 1.3 3.1 Basophils (%) (Auto) 0.5 0.5 Neutrophils # (Auto) 7.6 5.3 Lymphocytes # (Auto) 1.5 1.5 Monocytes # (Auto) 0.6 0.7 Eosinophils # (Auto) 0.1 0.2 Basophils # (Auto) 0.0 0.0 CBC Comment DIFF FINAL DIFF FINAL Differential Comment Sodium Level 143 Potassium Level 4.2 Chloride Level 108 Carbon Dioxide Level 27.1 Anion Gap 8 Blood Urea Nitrogen 30 Creatinine 1.00 Estimat Glomerular Filtration 53 Rate Random Glucose 131 Calcium Level 8.8 Blood Type O POSITIVE Antibody Screen NEGATIVE Blood Bank Comment Urine Color YELLOW Urine Turbidity CLEAR Urine pH 6.0 Urine Specific [place] 1.026 Urine Protein NEG Urine Glucose (UA) NEG Urine Ketones TRACE Urine Occult Blood SMALL Urine Nitrite NEG Urine Bilirubin NEG Urine Leukocyte Esterase TRACE Urine RBC 20-24 Urine WBC 25-49 Urine WBC Clumps FEW Urine Squamous Epithelial 0-5 Cells Urine Bacteria MANY Result Diagram: 04/16/17 0600 04/15/172019 Assessment and Plan Assessment and Plan 81-year-old female who presented to the hospital because of rectal bleeding Rectal bleeding, likely secondary to hemorrhoid Complicated by anticoagulation with Pradaxa Continue monitor hemoglobin and hematocrit GI was consulted for recommendations Patient started on Analpram-HC Urinary tract infection Patient started on Rocephin Monitor urine culture for appropriate antibiotics Atrial fibrillation/history CVA Patient was anticoagulated on Pradaxa, that is being held at this time We'll defer continuation of anticoagulation to GI physician Vjq was continued Parkinson's/dementia Patient's home medications have been continued Hypothyroidism home medication was continued DVT prevention Sequential compression devices, avoid chemical prophylaxis secondary to rectal bleeding Physician Certification 2 Midnight Certification Type: Admission for Inpatient Services Order for Inpatient Services The services are ordered in accordance with Medicare regulations or non- Medicare payer requirements, as applicable. In the case of services not specified as inpatient-only, they are appropriately provided as inpatient services in accordance with the 2-midnight benchmark. Estimated LOS (days): 2 days is the estimated time the patient will need to remain in the hospital, assuming treatment plan goals are met and no additional complications. Post-Hospital Plan: Not yet determined Problem Qualifiers (1) Hemorrhoid: Qualified Code: K64.9 - Hemorrhoids, unspecified hemorrhoid type (2) Atrial fibrillation: Qualified Code: I48.91 - Atrial fibrillation, unspecified type (3) Hypertension: Qualified Code: I10 - Hypertension, unspecified type (4) Dementia: Qualified Code: F03.90 - Dementia without behavioral disturbance, unspecified dementia type Kieran Lezama Apr 16, 2017 15:16 Rosy Mcgee MD Apr 16, 2017 20:25
--- NOTE | 2017-04-16 15:46 | MB ---
cc: MARY CESAR M.D. DATE OF CONSULTATION: 04/16/2017 DATE OF : 37 REASON FOR GI CONSULTATION Evaluation of rectal bleeding. HISTORY OF PRESENT ILLNESS An 81-year-old female who was admitted because of rectal bleeding, she is a resident at [facility]. Apparently, she has a history of dementia and Parkinson's disease. She has a history of a-fib on Pradaxa. She has had difficulties with hemorrhoids documented previously and she came in with bright red rectal bleeding, hemoglobin was 14 and it is 13.3 today. She has had no further bleeding. She has had no abdominal pain, she has been eating well, no weight loss. Apparently, she had a colonoscopy five years [address] Villela in her practice that was apparently benign. I do not have the report at hand. The patient has been hallucinating and has been disoriented. I was asked to evaluate her further. PAST MEDICAL HISTORY 1. Cholecystectomy. 2. Appendectomy. 3. Coronary artery disease with stenting. 4. Gynecological surgery. 5. Hysterectomy. 6. Cataract replacement. 7. Hypertension. 8. GERD. 9. Hiatal hernia. 10. CVA. 11. A-fib. SOCIAL HISTORY There is no alcohol or tobacco or substance use. FAMILY HISTORY Apparently is negative from a GI standpoint. REVIEW OF SYSTEMS Review of systems is unobtainable at this time but according to the records she developed rectal bleeding abruptly and has a history of hemorrhoids. She has not been having any vomiting or abdominal pain per se. Other labs: White count was 9.8, electrolytes were stable, creatinine is 1.0. Labs revealed the possibility of a UTI as well. PHYSICAL EXAMINATION GENERAL: Elderly female, alert, confused, in no acute distress. VITAL SIGNS: Vital signs are stable. HEENT: Normocephalic. Sclerae anicteric. Oral mucosa dry. NECK: Neck is supple. CARDIAC: S1 and S2, slightly irregular. CHEST: Clear. ABDOMEN: Soft, nontender. Bowel sounds present. No organomegaly. Surgical scars are well-healed. EXTREMITIES: Without clubbing, cyanosis or edema. MEDICATIONS Medications listed include - 1. Multivitamin. 2. Carbidopa-Levodopa. 3. Vitamin B12. 4. Ropinirole. 5. Alprazolam. 6. Gabapentin. 7. Donepezil. 8. Bethanechol. 9. Levothyroxine. 10. Pradaxa. IMPRESSION An 81-year-old female with underlying dementia, Parkinson's disease, history of hemorrhoids presents with rectal bleeding. Incidentally, I did perform a digital rectal exam at bedside, external hemorrhoids grade 2 were noted. The rectal vault did contain a fair amount of soft brown stool and she was heme-negative, I did not appreciate any bright red blood at all. PLAN At this point, I would presume the patient's rectal bleeding is due to hemorrhoidal disease with superimposed Pradaxa therapy. For now I would proceed conservatively, monitor the H&Hs for any further bleeding. I would recommend local therapy for the hemorrhoids including Analpram HC and/or the use of Tucks pads. Would recommend MiraLax and fiber supplements as well. I would be glad to follow the patient with you for now, and we can make further recommendations as we follow her progress. Thank you this consultation. MD JERO Banks/ELLIOTT /11:28 AM /3:25 PM
[2017-04-16] MEDS: BETHANECHOL CHL 25 MG TAB PO SCH (17:06)
[2017-04-16] MEDS: HYDROCORT-PRAMOX 2.5%-1% CREAM 30 APPLIC/30 GM TUBE TOPICAL SCH ×2 (17:06→21:44)
[2017-04-16] MEDS: SODIUM CHLOR 0.9% 1000 ML INJ 1,000 ML IV SCH (17:36)
[2017-04-16] MEDS: CARBIDOPA/LEVODOPA 25 MG/250 MG TAB PO SCH (21:43)
[2017-04-16] MEDS: GABAPENTIN 100 MG CAP PO SCH (21:43)
[2017-04-16] MEDS: DONEPEZIL HCL 5 MG TAB PO SCH (21:44)
[2017-04-16] MEDS: DRONEDARONE 400 MG TAB PO SCH (21:44)
[2017-04-16] MEDS ORDERED: cefTRIAXone INJ 1,000 MG in SODIUM CHLORIDE 0.9% INJ 100 ML IV SCH (22:00)
[2017-04-17 00:40] VITALS: BP 139/72; PULSE 80; RESP 14; TEMP 98; O2SAT 96
[2017-04-17 04:53] VITALS: BP 121/86; PULSE 79; RESP 12; TEMP 97.7; O2SAT 98
[2017-04-17] MEDS ORDERED: LEVOTHYROXINE SODIUM 75 MCG TAB PO SCH (06:00)
[2017-04-17] MEDS: CARBIDOPA/LEVODOPA 25 MG/250 MG TAB PO SCH (06:20)
[2017-04-17 06:48] LABS: AUTOMATED NEUTROPHIL # 5.1 TH/MM3 (1.8-7.7); BASOPHIL % 0.6 % (0.0-2.0); EOSINOPHIL # 0.3 TH/MM3 (0-0.4); EOSINOPHIL % 3.8 % (0.0-4.0); HEMATOCRIT 45.7 % (35.0-46.0); HEMO FLAGS DIFF FINAL; LYMPH % 18.4 % (9.0-44.0); LYMPHOCYTE # 1.4 TH/MM3 (1.0-4.8); MEAN CELL VOLUME 92.1 FL (80.0-100.0); MEAN CORPUSCULAR HEMOGLOBIN 31.2 PG (27.0-34.0); MEAN CORPUSCULAR HGB CONC 33.9 % (32.0-36.0); MONO % 8.1 % (0.0-8.0); NEUT % 69.1 % (16.0-70.0); PLATELET COUNT 235 TH/MM3 (150-450); RED BLOOD COUNT 4.96 MIL/MM3 (4.00-5.30); RED CELL DISTRIBUTION WIDTH 13.3 % (11.6-17.2); WHITE BLOOD COUNT 7.4 TH/MM3 (4.0-11.0)
[2017-04-17 06:58] LABS: POTASSIUM 3.8 MEQ/L (3.5-5.1)
[2017-04-17 07:04] LABS: BICARBONATE 27.9 MEQ/L (21.0-32.0)
[2017-04-17] MEDS: GABAPENTIN 100 MG CAP PO SCH (08:22)
[2017-04-17] MEDS: DONEPEZIL HCL 5 MG TAB PO SCH (08:22)
[2017-04-17] MEDS: BETHANECHOL CHL 25 MG TAB PO SCH ×2 (08:22→12:41)
[2017-04-17] MEDS: DRONEDARONE 400 MG TAB PO SCH (08:22)
[2017-04-17 08:24] VITALS: BP 139/80; PULSE 90; RESP 16; TEMP 97.8; O2SAT 94
[2017-04-17] MEDS: HYDROCORT-PRAMOX 2.5%-1% CREAM 30 APPLIC/30 GM TUBE TOPICAL SCH (08:25)
[2017-04-17] MEDS ORDERED: DULoxetine HCl DR 30 MG CAP PO SCH (09:00)
[2017-04-17] MEDS ORDERED: CYANOCOBALAMIN 100 MCG TAB PO SCH (09:00)
--- NOTE | 2017-04-17 09:25 | HHI.PR ---
Subjective Remarks In bed, eating breakfast. Says she feels better. She is pleasantly confused. Says she did not have any bloody BM s. No nausea or vomiting. Not much appetite. No fever or chills. Objective Vitals Vital Signs Date Time Temp Pulse Resp B/P Pulse Ox O2 Delivery O2 Flow Rate FiO2 04/17/17 08:24 97.8 90 16 139/80 94 04/17/17 04:53 97.7 79 12 121/86 98 04/17/17 00:40 98.0 80 14 139/72 96 04/16/17 20:19 97.8 56 16 142/88 96 04/16/17 16:00 97.8 100 17 162/100 95 04/16/17 12:00 97.5 98 19 131/89 96 I/O 04/16/17 04/16/17 04/16/17 04/17/17 04/17/17 04/17/17 07:00 15:00 23:00 07:00 15:00 23:00 Intake Total 300 ml 1499 ml Output Total 850 ml Balance 300 ml 649 ml Intake IV Total 300 ml 1499 ml Output Urine Total 850 ml # Voids 5 2 3 # Bowel Movements 1 2 Result Diagram: 04/17/1761904/17/17 0620 Objective Remarks GENERAL: Pleasantly confused 81 yo F in bed, doesn't appear in acute distress. SKIN: Warm and dry. CARDIOVASCULAR: Regular rate and rhythm. RESPIRATORY: No accessory muscle use. Clear to auscultation. Breath sounds equal bilaterally. GASTROINTESTINAL: Abdomen soft, non-tender, nondistended. Hepatic and splenic margins not palpable. MUSCULOSKELETAL: Extremities without clubbing, cyanosis, or edema. No obvious deformities. NEUROLOGICAL: Awake and alert. No obvious cranial nerve deficits. Motor grossly within normal limits. Five out of 5 muscle strength in the arms and legs. Normal speech. PSYCHIATRIC: Appropriate mood and affect; insight and judgment normal. A/P Problem List: (1) Rectal bleeding ICD Code: K62.5 Status: Acute (2) Hemorrhoid ICD Code: K64.9 Status: Acute (3) Coagulopathy ICD Code: D68.9 Status: Acute (4) Atrial fibrillation ICD Code: I48.91 Status: Acute (5) Hypertension ICD Code: I10 Status: Acute (6) Parkinson disease ICD Code: G20 Status: Acute (7) Dementia ICD Code: F03.90 Status: Acute (8) History of CVA (cerebrovascular accident) ICD Code: Z86.73 Status: Acute (9) Chronic kidney disease, stage III (moderate) ICD Code: N18.3 Status: Acute Assessment and Plan 81-year-old female who presented to the hospital because of rectal bleeding Rectal bleeding, likely secondary to hemorrhoid Complicated by anticoagulation with Pradaxa Continue monitor hemoglobin and hematocrit. Transfuse if indicated GI was consulted for recommendations Patient started on Analpram-HC Urinary tract infection Patient started on Rocephin Monitor urine culture for appropriate antibiotics Atrial fibrillation/history CVA Patient was anticoagulated on Pradaxa, that is being held at this time We'll defer continuation of anticoagulation to GI physician Multaq was continued Parkinson's/dementia Patient's home medications have been continued Hypothyroidism home medication was continued DVT prevention Sequential compression devices, avoid chemical prophylaxis secondary to rectal bleeding Discussed with the patient. nurse. Problem Qualifiers (1) Hemorrhoid: Qualified Code: K64.9 - Hemorrhoids, unspecified hemorrhoid type (2) Atrial fibrillation: Qualified Code: I48.91 - Atrial fibrillation, unspecified type (3) Hypertension: Qualified Code: I10 - Hypertension, unspecified type (4) Dementia: Qualified Code: F03.90 - Dementia without behavioral disturbance, unspecified dementia type Rosy Mcgee MD Apr 17, 2017 09:25
[2017-04-17] MEDS ORDERED: SENN8.6T15 PO (11:54)
--- NOTE | 2017-04-17 11:56 | HHI.FF ---
Face to Face Verification Diagnosis: (1) Parkinson's disease dementia (2) Multiple contusions (3) Fall (4) Urinary tract infection (5) Atrial fibrillation (6) Coagulopathy (7) Dementia (8) Hemorrhoid (9) Chronic kidney disease, stage III (moderate) (10) History of CVA (cerebrovascular accident) (11) Hypertension (12) Rectal bleeding Physical Therapy Order: Evaluate and Treat Home Health Nursing Order: Medical education Signs/symptoms of disease process Medication education-adverse effect Nursing assessment with vital signs I have seen patient Sadia Arguelles on 04/17/17. My clinical findings support the need for the requested home health care services because: Ltd mobility - disease progression I certify that my clinical findings support that this patient is homebound because: Post-op weakness Unsteady gait/balance Rosy Mcgee MD Apr 17, 2017 11:56
[2017-04-17 12:00] VITALS: BP 128/88; PULSE 85; RESP 18; TEMP 97.6; O2SAT 95
--- NOTE | 2017-04-17 12:00 | HHI.GIFU ---
Subjective Remarks ALERT CONFUSED NAD HAD BM NO FURTHER BLEEDING HB 15 Objective Vitals I&O Vital Signs Date Time Temp Pulse Resp B/P Pulse Ox O2 Delivery O2 Flow Rate FiO2 04/17/17 08:24 97.8 90 16 139/80 94 04/17/17 04:53 97.7 79 12 121/86 98 04/17/17 00:40 98.0 80 14 139/72 96 04/16/17 20:19 97.8 56 16 142/88 96 04/16/17 16:00 97.8 100 17 162/100 95 04/16/17 12:00 97.5 98 19 131/89 96 I/O 04/16/17 04/16/17 04/16/17 04/17/17 04/17/17 04/17/17 07:00 15:00 23:00 07:00 15:00 23:00 Intake Total 300 ml 1499 ml Output Total 850 ml Balance 300 ml 649 ml Intake IV Total 300 ml 1499 ml Output Urine Total 850 ml # Voids 5 2 3 # Bowel Movements 1 2 1 Laboratory Laboratory Tests Test 04/17/17 06:20 White Blood Count 7.4 Red Blood Count 4.96 Hemoglobin 15.5 Hematocrit 45.7 Mean Corpuscular Volume 92.1 Mean Corpuscular Hemoglobin 31.2 Mean Corpuscular Hemoglobin 33.9 Concent Red Cell Distribution Width 13.3 Platelet Count 235 Mean Platelet Volume 7.6 Neutrophils (%) (Auto) 69.1 Lymphocytes (%) (Auto) 18.4 Monocytes (%) (Auto) 8.1 Eosinophils (%) (Auto) 3.8 Basophils (%) (Auto) 0.6 Neutrophils # (Auto) 5.1 Lymphocytes # (Auto) 1.4 Monocytes # (Auto) 0.6 Eosinophils # (Auto) 0.3 Basophils # (Auto) 0.0 CBC Comment DIFF FINAL Differential Comment Sodium Level 144 Potassium Level 3.8 Chloride Level 110 Carbon Dioxide Level 27.9 Anion Gap 6 Blood Urea Nitrogen 11 Creatinine 0.58 Estimat Glomerular Filtration 100 Rate Random Glucose 85 Calcium Level 8.6 Magnesium Level 2.0 Physical Exam . NECK: Neck is supple, no JVD, no lymphadenopathy. CHEST: Chest is clear to auscultation and percussion. CARDIAC: Regular rate and rhythm with no murmur gallop or rubs. ABDOMEN: Soft, nondistended, nontender; no hepatosplenomegaly; bowel sounds are present in all four quadrants. EXTREMITIES: No clubbing, cyanosis, or edema. SKIN: Normal; no rash; no jaundice. Assessment and Plan Assessment: (1) Rectal bleeding (2) Bleeding external hemorrhoids Plan PROCEED CONSERVATIVELY RX ANALPRM hc BID MIRALAX AND FIBER THERAPY STABLE FOR DC WILL SIGN OFF THANKS Michael Aviles MD Apr 17, 2017 12:00
--- NOTE | 2017-04-17 12:02 | HHI.GIFU ---
Subjective Remarks ALERT NAD NO FURTHER BLEEDING HAD BM HB 15 Objective Vitals I&O Vital Signs Date Time Temp Pulse Resp B/P Pulse Ox O2 Delivery O2 Flow Rate FiO2 04/17/17 08:24 97.8 90 16 139/80 94 04/17/17 04:53 97.7 79 12 121/86 98 04/17/17 00:40 98.0 80 14 139/72 96 04/16/17 20:19 97.8 56 16 142/88 96 04/16/17 16:00 97.8 100 17 162/100 95 I/O 04/16/17 04/16/17 04/16/17 04/17/17 04/17/17 04/17/17 07:00 15:00 23:00 07:00 15:00 23:00 Intake Total 300 ml 1499 ml Output Total 850 ml Balance 300 ml 649 ml Intake IV Total 300 ml 1499 ml Output Urine Total 850 ml # Voids 5 2 3 # Bowel Movements 1 2 1 Laboratory Laboratory Tests Test 04/17/17 06:20 White Blood Count 7.4 Red Blood Count 4.96 Hemoglobin 15.5 Hematocrit 45.7 Mean Corpuscular Volume 92.1 Mean Corpuscular Hemoglobin 31.2 Mean Corpuscular Hemoglobin 33.9 Concent Red Cell Distribution Width 13.3 Platelet Count 235 Mean Platelet Volume 7.6 Neutrophils (%) (Auto) 69.1 Lymphocytes (%) (Auto) 18.4 Monocytes (%) (Auto) 8.1 Eosinophils (%) (Auto) 3.8 Basophils (%) (Auto) 0.6 Neutrophils # (Auto) 5.1 Lymphocytes # (Auto) 1.4 Monocytes # (Auto) 0.6 Eosinophils # (Auto) 0.3 Basophils # (Auto) 0.0 CBC Comment DIFF FINAL Differential Comment Sodium Level 144 Potassium Level 3.8 Chloride Level 110 Carbon Dioxide Level 27.9 Anion Gap 6 Blood Urea Nitrogen 11 Creatinine 0.58 Estimat Glomerular Filtration 100 Rate Random Glucose 85 Calcium Level 8.6 Magnesium Level 2.0 Physical Exam . NECK: Neck is supple, no JVD, no lymphadenopathy. CHEST: Chest is clear to auscultation and percussion. CARDIAC: Regular rate and rhythm with no murmur gallop or rubs. ABDOMEN: Soft, nondistended, nontender; no hepatosplenomegaly; bowel sounds are present in all four quadrants. EXTREMITIES: No clubbing, cyanosis, or edema. SKIN: Normal; no rash; no jaundice. Assessment and Plan Assessment: (1) Rectal bleeding (2) Bleeding external hemorrhoids Plan PROCEED CONSERVATIVELY RX ANALPRM hc BID MIRALAX AND FIBER THERAPY STABLE FOR DC WILL SIGN OFF THANKS Michael Aviles MD Apr 17, 2017 12:02
[2017-04-17] MEDS ORDERED: MIRA3350 PO (12:06)
[2017-04-17] MEDS ORDERED: CIPR250T2 PO (12:18)
[2017-04-17] MEDS ORDERED: ANALHC30T TOPICAL (12:18)
--- NOTE | 2017-04-17 12:19 | HHI.DCPOC ---
Discharge Care Plan Goals to Promote Your Health * To prevent worsening of your condition and complications * To maintain your health at the optimal level Directions to Meet Your Goals Take your medications as prescribed Follow your dietary instruction Follow activity as directed Keep your appointments as scheduled Take your immunizations and boosters as scheduled If your symptoms worsen call your PCP, if no PCP go to Urgent Care Center or Emergency Room Smoking is Dangerous to Your Health. Avoid second hand smoke Call the 24-hour hour crisis hotline for domestic abuse at Rosy Mcgee MD Apr 17, 2017 12:19
[2017-04-17] MEDS ORDERED: CEFU1TAB20 PO (15:18)
== END 2017-04-17 13:30 | DRG 378 ==
LOC: PHED 19:38 → PHEDA 21:59 → PH3B 04-16 00:39 → OBSVTOIN 04-16 15:00
PROVIDERS: ADMIT Hospitalist; ATTEND Hospitalist
DX: K62.5 Hemorrhage of anus and rectum (principal); D68.9 Coagulation defect, unspecified; G20 Parkinson's disease; N18.3 Chronic kidney disease, stage 3 (moderate); N39.0 Urinary tract infection, site not specified; F02.80 Dementia in other diseases classified elsewhere, unspecified severity, without behavioral disturbance, psychotic disturbance, mood disturbance, and anxiety; I48.2 Chronic atrial fibrillation; K64.4 Residual hemorrhoidal skin tags; I12.9 Hypertensive chronic kidney disease with stage 1 through stage 4 chronic kidney disease, or unspecified chronic kidney disease; K21.9 Gastro-esophageal reflux disease without esophagitis; I25.10 Atherosclerotic heart disease of native coronary artery without angina pectoris; E03.9 Hypothyroidism, unspecified; K44.9 Diaphragmatic hernia without obstruction or gangrene; Z79.01 Long term (current) use of anticoagulants; Z86.73 Personal history of transient ischemic attack (TIA), and cerebral infarction without residual deficits; Z95.5 Presence of coronary angioplasty implant and graft
CPT/HCPCS: 80048; 81001; 83735; 85025; 86850; 86900; 86901; 99285; G0378; G8987-GP; G8988-GP; J0696; J7030; P9612

== ENCOUNTER 2017-05-26 16:03 | Emergency (ER) | payer MEDICARE, OTHER ==
[~2017-05-26 16:03] MED LIST changes: +ANALHC30T TOPICAL; +CEFU1TAB20 PO; +MIRA3350 PO; +SENN8.6T15 PO; +TYLE325T PO
[2017-05-26 16:06] VITALS: BP 121/69; PULSE 58; RESP 18; TEMP 98.3; O2SAT 98
[2017-05-26] MEDS ORDERED: SODIUM CHLORIDE 0.9% FLUSH 10 ML FLUSH IVF PRN ×2 (16:30)
--- NOTE | 2017-05-26 16:43 | PD ---
HPI Chief Complaint: Fall Time Seen by Provider: 16:30 Travel History International Travel<30 days: No Contact w/Intl Traveler<30days: No Traveled to known affect area: No History of Present Illness HPI 81-year-old female patient from nursing care facility, with history of atrial fibrillation currently on Pradaxa, dementia, presents to the ER today brought in by EMS because she had a fall at the nursing facility, has a skin tear to her left arm, possible head injury, unknown loss of consciousness. Patient is a poor historian and not able to give me much further history. She however did point to her left thigh and says she is having pain there. Modifying Factors: None Associated Signs & Symptoms: Fall, possible head injury, left arm skin tear, left thigh injury Risk Factors: Elderly, demented PFSH Past Medical History Hx Anticoagulant Therapy: Yes (PRADAXA) Atrial Fibrillation: Yes Autoimmune Disease: No Blood Disorders: No Heart Rhythm Problems: Yes Cancer: No Cardiac Catheterization: Yes Cardiovascular Problems: Yes (afib) Cerebrovascular Accident: Yes (CVA) Dementia: Yes Diabetes: No Diminished Hearing: No Gastrointestinal Disorders: Yes (HX OF HEMMORHOIDS.) Hiatal Hernia: Yes Hypertension: Yes Psychiatric: No Immunizations Current: No Seizures: No Thyroid Disease: Yes ?: Not Past Surgical History Abdominal Surgery: Yes Appendectomy: Yes Cholecystectomy: Yes Coronary Stent: Yes Eye Surgery: Yes (EYE SURG TO RT EYE.CATARACT REPLACEMENT BILAT.) Genitourinary Surgery: No Gynecologic Surgery: Yes Hysterectomy: Yes Pacemaker: No Social History Alcohol Use: No Tobacco Use: No Substance Use: No Allergies-Medications (Allergen,Severity, Reaction): Coded Allergies: No Known Allergies (Verified , 05/26/17) Reported Meds & Prescriptions Reported Meds & Active Scripts Active Miralax Powder (Polyethylene Glycol 3350 Powder) 17 Gm Powd 17 Gm PO DAILY Mix and dissolve one measuring cap-ful (17 grams) in water or juice. Senna Lax (Sennosides) 8.6 Mg Tab 17.2 Mg PO Q12H PRN Reported Tylenol (Acetaminophen) 325 Mg Tab 650 Mg PO Q4H PRN Multi-Vitamin Daily (Multiple Vitamin) 1 Tab Tab 1 Tab PO DAILY Vitamin B12 (Cyanocobalamin) 500 Mcg Tab 500 Mcg PO DAILY Ropinirole 0.25 Mg Tab 0.25 Mg PO TID Alprazolam 0.25 Mg Tab 0.125 Mg PO DAILY PRN Gabapentin 100 Mg Cap 200 Mg PO BID Levothyroxine (Levothyroxine Sodium) 75 Mcg Tab 75 Mcg PO DAILY Multaq (Dronedarone) 400 Mg Tab 400 Mg PO BID Pradaxa (Dabigatran) 150 Mg Cap 150 Mg PO BID Review of Systems ROS Limitations: Altered Mental Status Physical Exam Narrative GENERAL: Elderly white female patient currently in mild distress. Awake, alert , not oriented. SKIN: Focused skin assessment warm/dry. There is a 8 cm skin tear to the left forearm. Bleeding control. HEAD: Atraumatic. Normocephalic. EYES: Pupils equal and round. No scleral icterus. No injection or drainage. ENT: No nasal bleeding or discharge. Mucous membranes pink and moist. NECK: Trachea midline. No JVD. CARDIOVASCULAR: Irregularly irregular. No murmurs appreciated. RESPIRATORY: No accessory muscle use. Clear to auscultation. Breath sounds equal bilaterally. GASTROINTESTINAL: Abdomen soft, non-tender, nondistended. Hepatic and splenic margins not palpable. Pelvis: Stable, nontender palpation of the pelvis but is mildly tender palpation of the left femur. No obvious deformities identified. MUSCULOSKELETAL: No obvious deformities. No clubbing. No cyanosis. No edema. NEUROLOGICAL: Awake and alert. No obvious cranial nerve deficits. Motor grossly within normal limits. Normal speech. PSYCHIATRIC: Appropriate mood and affect; insight and judgment normal. Data Data Last Documented VS Vital Signs Date Time Temp Pulse Resp B/P Pulse Ox O2 Delivery O2 Flow Rate FiO2 05/26/17 17:59 97 Room Air 05/26/17 17:59 70 16 153/79 05/26/17 16:06 98.3 Orders Electrocardiogram (05/26/17 16:30) Complete Blood Count With Diff (05/26/17 16:30) Comprehensive Metabolic Panel (05/26/17 16:30) Magnesium (Mg) (05/26/17 16:30) Ckmb (Isoenzyme) Profile (05/26/17 16:30) Troponin I (05/26/17 16:30) Act Partial Throm Time (Ptt) (05/26/17 16:30) Prothrombin Time / Inr (Pt) (05/26/17 16:30) Urinalysis - C+S If Indicated (05/26/17 16:30) Chest, Single Ap (05/26/17 16:30) Ct Brain W/O Iv Contrast(Rout) (05/26/17 16:30) Ct Cerv Spine W/O Contrast (05/26/17 16:30) Ecg Monitoring (05/26/17 16:30) Iv Access Insert/Monitor (05/26/17 16:30) Oximetry (05/26/17 16:30) Sodium Chloride 0.9% Flush (Ns Flush) (05/26/17 16:30) Pelvis, Ap Only (Routine) (05/26/17 16:30) Oxygen Administration (05/26/17 16:30) Sodium Chloride 0.9% Flush (Ns Flush) (05/26/17 16:30) Femur (Ap & Lat/2vws) (05/26/17 16:30) CKMB (05/26/17 17:40) CKMB% (05/26/17 17:40) Labs Laboratory Tests Test 05/26/17 05/26/17 17:30 17:40 Urine Color YELLOW Urine Turbidity CLEAR Urine pH 7.0 Urine Specific [place] 1.013 Urine Protein NEG mg/dL Urine Glucose (UA) NEG mg/dL Urine Ketones NEG mg/dL Urine Occult Blood NEG Urine Nitrite NEG Urine Bilirubin NEG Urine Leukocyte Esterase NEG Urine RBC 0-3 /hpf Urine WBC 6-8 /hpf Urine Squamous Epithelial 6-8 /hpf Cells Urine Mucus FEW /lpf Microscopic Urinalysis Comment CULT NOT INDICATED White Blood Count 7.3 TH/MM3 Red Blood Count 4.95 MIL/MM3 Hemoglobin 15.1 GM/DL Hematocrit 45.2 % Mean Corpuscular Volume 91.3 FL Mean Corpuscular Hemoglobin 30.6 PG Mean Corpuscular Hemoglobin 33.5 % Concent Red Cell Distribution Width 12.9 % Platelet Count 225 TH/MM3 Mean Platelet Volume 7.4 FL Neutrophils (%) (Auto) 68.4 % Lymphocytes (%) (Auto) 19.0 % Monocytes (%) (Auto) 8.4 % Eosinophils (%) (Auto) 3.1 % Basophils (%) (Auto) 1.1 % Neutrophils # (Auto) 5.0 TH/MM3 Lymphocytes # (Auto) 1.4 TH/MM3 Monocytes # (Auto) 0.6 TH/MM3 Eosinophils # (Auto) 0.2 TH/MM3 Basophils # (Auto) 0.1 TH/MM3 CBC Comment DIFF FINAL Differential Comment Prothrombin Time 14.1 SEC Prothromb Time International 1.3 RATIO Ratio Activated Partial 47.6 SEC Thromboplast Time Sodium Level 142 MEQ/L Potassium Level 4.1 MEQ/L Chloride Level 107 MEQ/L Carbon Dioxide Level 29.5 MEQ/L Anion Gap 6 MEQ/L Blood Urea Nitrogen 18 MG/DL Creatinine 0.84 MG/DL Estimat Glomerular Filtration 65 ML/MIN Rate Random Glucose 92 MG/DL Calcium Level 8.9 MG/DL Magnesium Level 2.3 MG/DL Total Bilirubin 0.7 MG/DL Aspartate Amino Transf 31 U/L (AST/SGOT) Alanine Aminotransferase 17 U/L (ALT/SGPT) Alkaline Phosphatase 85 U/L Total Creatine Kinase 222 U/L Creatine Kinase MB 3.1 NG/ML Creatine Kinase MB % 1.4 % Troponin I LESS THAN 0.02 NG/ML Total Protein 7.5 GM/DL Albumin 3.7 GM/DL MDM Medical Decision Making Medical Screen Exam Complete: Yes Emergency Medical Condition: Yes Medical Record Reviewed: Yes Interpretation(s) EKG shows sinus bradycardia rate 53 bpm with no signs of acute ST-T elevations or depressions. Laboratory Tests Test 05/26/17 05/26/17 17:30 17:40 Urine WBC 6-8 /hpf (0-5) Urine Squamous Epithelial 6-8 /hpf (0-5) Cells Urine Mucus FEW /lpf (OCC) Monocytes (%) (Auto) 8.4 % (0.0-8.0) Prothrombin Time 14.1 SEC (9.8-11.6) Activated Partial 47.6 SEC Thromboplast Time (24.3-30.1) Estimat Glomerular Filtration 65 ML/MIN (>89) Rate Total Creatine Kinase 222 U/L (26-192) Troponin I LESS THAN 0.02 NG/ML (0.02-0.05) Last 24 hours Impressions Pelvis X-Ray 05/26/17 1630 Signed Impressions: Service Date/Time: May 17:07 - CONCLUSION: Negative trauma study. Umair Tabor MD Head CT 05/26/17 1630 Signed Impressions: Service Date/Time: May 16:55 - CONCLUSION: 1. No acute intracranial abnormality identified. Willy Cummings MD Femur X-Ray 05/26/[id number] Signed Impressions: Service Date/Time: May 17:08 - CONCLUSION: Negative trauma study. Umair Tabor MD Chest X-Ray 05/26/171629 Signed Impressions: Service Date/Time: , May 26, 2017 17:06 - CONCLUSION: No acute disease. Umair Tabor MD Cervical Spine CT [id number]/26/[id number] Signed Impressions: Service Date/Time: , May 26, 2017 16:55 - CONCLUSION: Negative trauma CT. Umair Tabor MD Differential Diagnosis Fall and nursing care facility, skin tear to the left arm, head injury, left thigh painrule out intracranial injuries versus fractures, rule out metabolic issues, possible syncope Narrative Course X-rays and CAT scans did not show any signs of acute fractures or dislocations. It appears that she has skin tears and contusions. Patient is apparently at baseline mental status. At this point, my plan would be to release her back to facility. Return for new issues as needed. Diagnosis Primary Impression: Fall Additional Impressions: Skin tear of left forearm without complication Multiple contusions Disposition: 03 DISCHARGE TO SNF Condition: Stable Naomi Sheikh MD May 26, 2017 16:43
[2017-05-26 17:36] LABS: BLOOD, URINE NEG (NEG); GLUCOSE,URINE NEG (NEG); KETONE, URINE NEG (NEG); NITRITE,URINE NEG (NEG)
[2017-05-26 17:41] LABS: URINE COLOR YELLOW (YELLW/STRAW)
[2017-05-26 17:42] LABS: MUCUS URINE FEW /lpf (OCC); RBC, URINE 0-3 /hpf (0-3)
[2017-05-26 17:43] LABS: COMMENT (UR) CULT NOT INDICATED; CULTURE IF INDICATED CULT NOT INDICATED
--- NOTE | 2017-05-26 17:45 | RADRPT ---
EXAM DATE/TIME: 05/26/2017 16:55 [facility] COMPARISON: CT CERVICAL SPINE W/O CONTRAST, December 26, 2016, 23:04. INDICATIONS : Status post fall today. Neck pain RADIATION DOSE: 25.95 CTDIvol (mGy) MEDICAL HISTORY : Dementia. Cerebrovascular disease. Cardiovascular disease SURGICAL HISTORY : Coronary artery stent. Cataracts ENCOUNTER: Initial ACUITY: 1 day PAIN SCALE: 4/10 LOCATION: neck TECHNIQUE: Volumetric scanning of the cervical spine was performed. Multiplanar reconstructions i n the sagittal, coronal and oblique axial planes were performed. Using automated exposure control a nd adjustment of the mA and/or kV according to patient size, radiation dose was kept as low as reason ably achievable to obtain optimal diagnostic quality images. DICOM format image data is available e lectronically for review and comparison. FINDINGS: The sagittal reconstructions demonstrate normal vertebral body height and normal prevertebral soft ti ssues. The dens is intact and there is a normal atlantoaxial relationship. Mild grade 1 anterior spon dylolisthesis is again noted of C4 on C5 of several millimeters which is unchanged. Degenerative disc changes are again noted at the C5-6 and C6-7 level with disc space narrowing and anterior spurring. The axial images demonstrate that the vertebral bodies and posterior elements are intact. The soft ti ssues are within normal limits. There is no evidence of acute fracture or malalignment. An annular di sc bulge is again noted at the C3-4 level. CONCLUSION: Negative trauma CT. Umair Tabor MD on May 26, 2017 at 17:41 Board Certified Radiologist. This report was verified electronically.
--- NOTE | 2017-05-26 17:51 | RADRPT ---
EXAM DATE/TIME: 05/26/2017 16:55 [facility] COMPARISON: CT CERVICAL SPINE W/O CONTRAST, December 26, 2016, 23:04. INDICATIONS : Status post fall today. Left ear pain. RADIATION DOSE: 61.4 CTDIvol (mGy) MEDICAL HISTORY : Cardiovascular disease. Cerebrovascular disease. CVA Afib Dementia SURGICAL HISTORY : Carotid stent. Cataracts ENCOUNTER: Initial ACUITY: 1 day PAIN SCALE: 4/10 LOCATION: Left cranial TECHNIQUE: Multiple contiguous axial images were obtained of the head. Using automated exposure control and adj ustment of the mA and/or kV according to patient size, radiation dose was kept as low as reasonably a chievable to obtain optimal diagnostic quality images. DICOM format image data is available electro nically for review and comparison. FINDINGS: CEREBRUM: The ventricles are normal for age. No evidence of midline shift, mass lesion, hemorrhage or acute in farction. No extra-axial fluid collections are seen. POSTERIOR FOSSA: The cerebellum and brainstem are intact. The 4th ventricle is midline. The cerebellopontine angle i s unremarkable. EXTRACRANIAL: The visualized portion of the orbits is intact. SKULL: The calvaria is intact. No evidence of skull fracture. CONCLUSION: 1. No acute intracranial abnormality identified. Willy Cummings MD on May 26, 2017 at 17:49 Board Certified Radiologist. This report was verified electronically.
[2017-05-26 17:58] LABS: BASOPHIL # 0.1 TH/MM3 (0-0.2); BASOPHIL % 1.1 % (0.0-2.0); EOSINOPHIL # 0.2 TH/MM3 (0-0.4); EOSINOPHIL % 3.1 % (0.0-4.0); HEMATOCRIT 45.2 % (35.0-46.0); HEMO FLAGS DIFF FINAL; LYMPHOCYTE # 1.4 TH/MM3 (1.0-4.8); MEAN CELL VOLUME 91.3 FL (80.0-100.0); MEAN CORPUSCULAR HEMOGLOBIN 30.6 PG (27.0-34.0); MEAN CORPUSCULAR HGB CONC 33.5 % (32.0-36.0); MONO % 8.4 % (0.0-8.0); NEUT % 68.4 % (16.0-70.0); PLATELET COUNT 225 TH/MM3 (150-450); RED BLOOD COUNT 4.95 MIL/MM3 (4.00-5.30); RED CELL DISTRIBUTION WIDTH 12.9 % (11.6-17.2); WHITE BLOOD COUNT 7.3 TH/MM3 (4.0-11.0)
[2017-05-26 17:59] VITALS: BP 153/79; PULSE 70; RESP 16; RESP 18; O2SAT 97
--- NOTE | 2017-05-26 18:01 | RADRPT ---
EXAM DATE/TIME: 05/26/2017 17:07 [facility] COMPARISON: PELVIS AP ONLY, April 03, 2017, 11:52. INDICATIONS : Patient fell this afternoon. Pain in left hip. MEDICAL HISTORY : Parkinson's disease SURGICAL HISTORY : None. ENCOUNTER: Initial ACUITY: 1 day PAIN SCORE: 7/10 LOCATION: Left Hip FINDINGS: A single frontal view of the pelvis demonstrates no evidence of fracture. The bony pelvic ring is in tact. Bony mineralization is normal. The soft tissues are intact. CONCLUSION: Negative trauma study. Umair Tabor MD on May 26, 2017 at 17:59 Board Certified Radiologist. This report was verified electronically.
--- NOTE | 2017-05-26 18:01 | RADRPT ---
EXAM DATE/TIME: 05/26/2017 17:06 [facility] COMPARISON: CHEST SINGLE AP, June 25, 2014, 14:55. INDICATIONS : Patient fell this afternoon. Pain in left hip. MEDICAL HISTORY : Parkinson's disease SURGICAL HISTORY : None. ENCOUNTER: Initial ACUITY: 1 day PAIN SCORE: 0/10 LOCATION: Bilateral chest FINDINGS: A single view of the chest demonstrates the lungs to be symmetrically aerated without evidence of mas s, infiltrate or effusion. The cardiomediastinal contours are unremarkable. Osseous structures are intact. Atherosclerotic calcifications are present in the aorta. There are tracheal calcifications. T he patient is status post cholecystectomy. There is mild osteopenia. CONCLUSION: No acute disease. Umair Tabor MD on May 26, 2017 at 17:59 Board Certified Radiologist. This report was verified electronically.
--- NOTE | 2017-05-26 18:02 | RADRPT ---
EXAM DATE/TIME: 05/26/2017 17:08 [facility] COMPARISON: No previous studies available for comparison. INDICATIONS : Patient fell this afternoon. Pain in left hip. MEDICAL HISTORY : Parkinsons SURGICAL HISTORY : None. ENCOUNTER: Initial ACUITY: 1 day PAIN SCORE: 7/10 LOCATION: Left Hip FINDINGS: Two view examination of the left femur demonstrates no evidence of fracture or dislocation. There is mild osteopenia. The soft tissue is unremarkable in appearance. CONCLUSION: Negative trauma study. Umair Tabor MD on May 26, 2017 at 18:00 Board Certified Radiologist. This report was verified electronically.
[2017-05-26 18:04] LABS: CHLORIDE 107 MEQ/L (98-107); POTASSIUM 4.1 MEQ/L (3.5-5.1); SODIUM (NA) 142 MEQ/L (136-145)
[2017-05-26 18:08] LABS: ANION GAP 6 MEQ/L (5-15); BICARBONATE 29.5 MEQ/L (21.0-32.0); BLOOD UREA NITROGEN 18 MG/DL (7-18); MAGNESIUM 2.3 MG/DL (1.5-2.5)
[2017-05-26 18:10] LABS: APTT (PATIENT) 47.6 SEC (24.3-30.1); INTERNATIONAL NORMALIZED RATIO 1.3 RATIO; PROTHROMBIN TIME - PATIENT 14.1 SEC (9.8-11.6)
[2017-05-26 18:11] LABS: ALT (GPT) 17 U/L (10-53); AST (GOT) 31 U/L (15-37); GLOMERULAR FILTRATION RATE 65 ML/MIN (>89)
[2017-05-26 18:12] LABS: TOTAL BILIRUBIN ADULT 0.7 MG/DL (0.2-1.0)
[2017-05-26 18:14] LABS: ALKALINE PHOSPHATASE 85 U/L (45-117); CREATINE KINASE 222 U/L (26-192)
[2017-05-26 18:26] LABS: CKMB 3.1 NG/ML (0.5-3.6)
[2017-05-26 19:35] VITALS: BP 140/68; PULSE 70; RESP 16; O2SAT 98
--- NOTE | 2017-05-27 14:11 | EKG ---
Date Performed: 05/26/2017 Time Performed: 16:46:04 PTAGE: 81 years EKG: SINUS BRADYCARDIA MARKED LEFT AXIS DEVIATION RIGHT BUNDLE BRANCH BLOCK PROBABLE SEPTAL MYOC ARDIAL INFARCTION Compared to previous tracing sinus bradycardia has replaced atrial fibrillation ABN ORMAL ECG PREVIOUS TRACING : 06/25/2014 14.27 DOCTOR: Jaden Gonzalez Interpretating Date/Time 05/27/2017 14:10:22
== END 2017-05-26 19:42 | disposition home or self-care (01) ==
LOC: PHEFT 16:03 → PHED 19:42
DX: S51.812A Laceration without foreign body of left forearm, initial encounter (principal); I48.91 Unspecified atrial fibrillation; I10 Essential (primary) hypertension; W19.XXXA Unspecified fall, initial encounter; Y92.129 Unspecified place in nursing home as the place of occurrence of the external cause; Z79.01 Long term (current) use of anticoagulants
CPT/HCPCS: 70450; 71010; 72125; 72170; 73552; 80053; 81001; 82550; 82552; 83735; 84484; 85025; 85610; 85730; 93005; 99285

== ENCOUNTER 2017-09-29 22:07 | Emergency (ER) | payer MEDICARE, OTHER ==
[~2017-09-29] VITALS: Ht 162.6 cm; Wt 70.0 kg
[~2017-09-29 22:07] MED LIST changes: -ANALHC30T TOPICAL; -BETH25TA2 PO; -CARB25TA12 PO; -CEFU1TAB20 PO; -DONE10TA7 PO; -DULO1CAP2 PO; +SENN1TAB27 PO; -SENN8.6T15 PO; +VITA500T35 PO; -VITA500T49 PO
[2017-09-29 22:18] VITALS: BP 171/79; PULSE 65; RESP 18; TEMP 98.1; O2SAT 98
[2017-09-29] MEDS ORDERED: DIPHTH/TETANUS/ACEL PERTUSSIS (BOOSTER) 0.5 ML VIAL/PFS IM ONE (22:30)
[2017-09-29] MEDS ORDERED: BETH25TA2 PO (22:31)
[2017-09-29] MEDS ORDERED: CARB25TA9 PO (22:31)
[2017-09-29] MEDS ORDERED: DULO1CAP2 PO (22:31)
[2017-09-29] MEDS ORDERED: DONE10TA7 PO (22:31)
--- NOTE | 2017-09-29 22:33 | PD ---
HPI Chief Complaint: Fall Time Seen by Provider: 22:12 Travel History International Travel<30 days: No Contact w/Intl Traveler<30days: No Traveled to known affect area: No History of Present Illness HPI Patient is an 82-year-old female who is a hospice patient and resides at a dementia unit, reports that she went to go tie her shoes tonight and fell forward hitting her head on the floor. Unknown if patient suffered LOC. Patient does take pradaxa daily. Patient is currently alert to person. Complains of pain to her left forehead where her laceration is. Patient also complains of neck and upper back pain. Patient with no chest pain or shortness of breath, patient with no abdominal pain. Patient with no other complaints at this time. PFSH Past Medical History Hx Anticoagulant Therapy: Yes Atrial Fibrillation: Yes Autoimmune Disease: No Blood Disorders: No Heart Rhythm Problems: Yes Cancer: No Cardiac Catheterization: Yes Cardiovascular Problems: Yes (afib) Cerebrovascular Accident: Yes (CVA) Dementia: Yes Diabetes: No Diminished Hearing: No Gastrointestinal Disorders: Yes (HX OF HEMMORHOIDS.) Hiatal Hernia: Yes Hypertension: Yes Psychiatric: No Immunizations Current: No Seizures: No Thyroid Disease: Yes Tetanus Vaccination: Unknown Influenza Vaccination: No Past Surgical History Abdominal Surgery: Yes Appendectomy: Yes Cholecystectomy: Yes Coronary Stent: Yes Eye Surgery: Yes (EYE SURG TO RT EYE.CATARACT REPLACEMENT BILAT.) Genitourinary Surgery: No Gynecologic Surgery: Yes Hysterectomy: Yes Pacemaker: No Social History Alcohol Use: No Tobacco Use: No Substance Use: No Allergies-Medications (Allergen,Severity, Reaction): Coded Allergies: No Known Allergies (Verified Adverse Reaction, Unknown, 09/29/17) Reported Meds & Prescriptions Reported Meds & Active Scripts Active Reported Donepezil 10 Mg Tab 10 Mg PO BID Carbidopa-Levodopa 25-100 Mg Tab 1 Tab PO BID Duloxetine DR (Duloxetine HCl) 30 Mg Capdr 30 Mg PO HS Bethanechol 25 Mg Tab 12.5 Mg PO TID Multi-Vitamin Daily (Multiple Vitamin) 1 Tab Tab 1 Tab PO DAILY Vitamin B12 (Cyanocobalamin) 500 Mcg Tab 500 Mcg PO DAILY Ropinirole 0.25 Mg Tab 0.25 Mg PO TID Alprazolam 0.25 Mg Tab 0.125 Mg PO DAILY PRN Gabapentin 100 Mg Cap 200 Mg PO BID Levothyroxine (Levothyroxine Sodium) 75 Mcg Tab 75 Mcg PO DAILY Multaq (Dronedarone) 400 Mg Tab 400 Mg PO BID Pradaxa (Dabigatran) 150 Mg Cap 150 Mg PO BID Review of Systems General / Constitutional: No: Fever Eyes: No: Visual changes HENT: Positive: Headaches, Neck Pain Cardiovascular: No: Chest Pain or Discomfort Respiratory: No: Shortness of Breath Gastrointestinal: No: Abdominal Pain Genitourinary: No: Dysuria Musculoskeletal: Positive: Pain (upper back pain) Skin: No Rash Neurologic: No: Weakness Psychiatric: No: Depression Endocrine: No: Polydipsia Hematologic/Lymphatic: No: Easy Bruising Physical Exam Narrative GENERAL: moderate distress SKIN: Focused skin assessment warm/dry. HEAD: . Normocephalic. Patient with 1cm linear laceration to left forehead EYES: Pupils equal and round. No scleral icterus. No injection or drainage. ENT: No nasal bleeding or discharge. Mucous membranes pink and moist. NECK: Trachea midline. No JVD. Patient currently in c-spine precautions CARDIOVASCULAR: Regular rate and rhythm. No murmur appreciated. RESPIRATORY: No accessory muscle use. Clear to auscultation. Breath sounds equal bilaterally. GASTROINTESTINAL: Abdomen soft, non-tender, nondistended. Hepatic and splenic margins not palpable. MUSCULOSKELETAL: No obvious deformities. No clubbing. No cyanosis. No edema. Patient with bruising to bilateral knees NEUROLOGICAL: Awake and alert.Normal speech. PSYCHIATRIC: Appropriate mood and affect; insight and judgment normal. Data Data Last Documented VS Vital Signs Date Time Temp Pulse Resp B/P (MAP) Pulse Ox O2 Delivery O2 Flow Rate FiO2 09/29/17 22:18 98.1 65 18 171/79 (109) [address] Brain W/O Iv Contrast(Rout) (09/29/17 22:23) Ct Cerv Spine W/O Contrast (09/29/17 22:23) Ecg Monitoring (09/29/17 22:23) Oxygen Administration (09/29/17 22:23) Wound Care (09/29/17 22:23) Ct Thor Spine W/O Contrast (09/29/17 ) [id number] (Booster) Inj (Boostrix (09/29/17 22:30) Knee, Complete (4vws) (09/29/17 ) Knee, Complete (4vws) (09/29/17 ) Ed Discharge Order (09/30/17 00:33) [facility] Medical Decision Making Medical Screen Exam Complete: Yes Emergency Medical Condition: Yes Medical Record Reviewed: Yes Interpretation(s) Vital Signs Date Time Temp Pulse Resp B/P (MAP) Pulse Ox O2 Delivery O2 Flow Rate FiO2 09/29/17 22:18 98.1 65 18 171/79 (109) 98 Differential Diagnosis Facial laceration, intracranial hemorrhage, cervical spine fracture, thoracic spine fracture, bilateral knee sprain versus fracture Narrative Course During the course of the patients emergency department visit, the patients history, examination, and differential diagnosis were reviewed with the patient. The patient was placed on a playground monitor with oximetry and frequent blood pressure monitoring. The patient was initially provided boostrix Radiology studies were reviewed and remarkable for: Last Impressions Head CT 09/29/172222 Signed Impressions: Service Date/Time: September 22:55 - CONCLUSION: No acute intracranial injury Chandler Armijo MD Cervical Spine CT 09/29/172222 Signed Impressions: Service Date/Time: September 22:57 - CONCLUSION: No acute bony injury in the cervical spine. Chandler Armijo MD Thoracic Spine CT 09/29/17 0000 Signed Impressions: Service Date/Time: September 22:58 - CONCLUSION: No acute bony injury the thoracic spine. Abnormal appearance of the esophagus. Chandler Armijo MD Patient with no acute injuries on CT studies or xray studies. She will be discharged to home with instructions to follow-up with her primary care doctor. Suture removal in 7 days. Diagnosis Primary Impression: Facial laceration Qualified Codes: S01.81XA - Laceration without foreign body of other part of head, initial encounter Additional Impression: Head injury Qualified Codes: S09.90XA - Unspecified injury of head, initial encounter Patient Instructions: General Instructions Additional Instructions: Suture removal in 7 days, keep wounds clean with bacitracin dressings Please follow up with your primary care doctor in 1-2 days Return to the ER if symptoms worsen or progress Return to the ER as needed Disposition: 01 DISCHARGE HOME Condition: Stable Alexsandra Mesa DO Sep 29, 2017 22:33
--- NOTE | 2017-09-29 23:32 | RADRPT ---
EXAM DATE/TIME: 09/29/2017 22:55 [facility] COMPARISON: CT BRAIN W/O CONTRAST, May 26, 2017, 16:55. INDICATIONS : Trauma, fall. RADIATION DOSE: 56.35 CTDIvol (mGy) MEDICAL HISTORY : Cerebrovascular disease. Dementia. Hypertension. SURGICAL HISTORY : None. ENCOUNTER: Initial ACUITY: 1 day PAIN SCALE: 5/10 LOCATION: cranial TECHNIQUE: Multiple contiguous axial images were obtained of the head. Using automated exposure control and adj ustment of the mA and/or kV according to patient size, radiation dose was kept as low as reasonably a chievable to obtain optimal diagnostic quality images. DICOM format image data is available electro nically for review and comparison. FINDINGS: There is prominent left frontal scalp swelling and laceration. No underlying skull fracture. There is no evidence of acute brain injury. No hemorrhage or edema. There is mild patchy diminished attenuati on in periventricular white matter, most prominent in the right parietal region. No evidence of intra cranial mass. Nothing to suggest acute infarction. CONCLUSION: No acute intracranial injury Chandler Armijo MD on September 29, 2017 at 23:27 Board Certified Radiologist. This report was verified electronically.
--- NOTE | 2017-09-29 23:36 | RADRPT ---
EXAM DATE/TIME: 09/29/2017 22:57 [facility] COMPARISON: No previous studies available for comparison. INDICATIONS : Trauma, fall. RADIATION DOSE: 35.93 CTDIvol (mGy) MEDICAL HISTORY : Hypertension. Dementia. Cerebrovascular disease. SURGICAL HISTORY : None. ENCOUNTER: Initial ACUITY: 1 day PAIN SCALE: 5/10 LOCATION: neck TECHNIQUE: Volumetric scanning of the cervical spine was performed. Multiplanar reconstructions in the sagittal, coronal and oblique axial planes were performed. Using automated exposure control and adjustment o f the mA and/or kV according to patient size, radiation dose was kept as low as reasonably achievable to obtain optimal diagnostic quality images. DICOM format image data is available electronically f or review and comparison. FINDINGS: There is slight anterolisthesis of C4 relative to C5. Severe disc space narrowing at C5-6 and C6-7. T here is no evidence of cervical spine fracture. No significant bony canal or foraminal compromise is identified. There does appear to be multilevel disc disease with broad protrusion most notably at C3- 4. There is no evidence of paraspinal hematoma. CONCLUSION: No acute bony injury in the cervical spine. Chandler Armijo MD on September 29, 2017 at 23:30 Board Certified Radiologist. This report was verified electronically.
--- NOTE | 2017-09-29 23:43 | RADRPT ---
EXAM DATE/TIME: 09/29/2017 22:58 [facility] COMPARISON: CT THORACIC SPINE W/O CONTRAST, March 09, 2016, 23:27. INDICATIONS : Trauma, fall. RADIATION DOSE: 11.67 CTDIvol (mGy) MEDICAL HISTORY : Hypertension. Cerebrovascular disease. Dementia. SURGICAL HISTORY : None. ENCOUNTER: Initial ACUITY: 1 day PAIN SCALE: 5/10 LOCATION: Paraspinal TECHNIQUE: Volumetric scanning of the thoracic spine was performed. Multiplanar reconstructions in the sagittal , coronal and oblique axial planes were performed. Using automated exposure control and adjustment o f the mA and/or kV according to patient size, radiation dose was kept as low as reasonably achievable to obtain optimal diagnostic quality images. DICOM format image data is available electronically f or review and comparison. FINDINGS: There is mild kyphotic accentuation. No evidence of spondylolisthesis. There is no evidence of thorac ic spine fracture. No bony canal compromise is identified. Mild degenerative changes are present with small primarily ventral endplate osteophytes mainly in the mid to lower thoracic regions. There is n o evidence of paraspinal hematoma. There is prominent fluid and gaseous dilatation of the esophagus t hroughout which is most likely related to achalasia, however elective workup would be recommended to exclude distal mass process. CONCLUSION: No acute bony injury the thoracic spine. Abnormal appearance of the esophagus. Chandler Armijo MD on September 29, 2017 at 23:37 Board Certified Radiologist. This report was verified electronically.
--- NOTE | 2017-09-29 23:50 | PD ---
Physical Exam Date Seen by Provider: Sep 29, 2017 Time Seen by Provider: 23:48 Narrative Skin: Patient has a 3 several laceration to the left eyebrow and forehead. She has a moderate hematoma. Data Data Last Documented VS Vital Signs Date Time Temp Pulse Resp B/P (MAP) Pulse Ox O2 Delivery O2 Flow Rate FiO2 09/29/17 22:18 98.1 65 18 171/79 (109) [address] Brain W/O Iv Contrast(Rout) (09/29/17 22:23) Ct Cerv Spine W/O Contrast (09/29/17 22:23) Ecg Monitoring (09/29/17 22:23) Oxygen Administration (09/29/17 22:23) Wound Care (09/29/17 22:23) Ct Thor Spine W/O Contrast (09/29/17 ) Knxg-[id number]-Shyrra (Booster) Inj (Boostrix (09/29/17 22:30) Knee, Complete (4vws) (09/29/17 ) Knee, Complete (4vws) (09/29/17 ) MDM Medical Record Reviewed: Yes Supervised Visit with YURY: Yes Interpretation(s) Last [address] 09/29/172222 Signed Impressions: Service Date/Time: September 22:55 - CONCLUSION: No acute intracranial injury Chandler Armijo MD Cervical Spine CT 09/29/172222 Signed Impressions: Service Date/Time: September 22:57 - CONCLUSION: No acute bony injury in the cervical spine. Chandler Armijo MD Differential Diagnosis MDM: High Differential diagnoses: Fracture, sprain, strain, dislocation, contusion, neurovascular injury Narrative Course Patient's laceration is closed sutures. Pressure dressing applied. Procedures Procedure Narrative LACERATION LOCATION: Left eyebrow/forehead LENGTH: 3 cm NUMBER OF STITCHES/JANAK: 6 REPAIR: The area of the laceration was prepped with Betadine and sterilely draped. The laceration was infiltrated with 1% lidocaine. The wound was copiously irrigated and explored without evidence of foreign body, tendon injury or neurovascular injury. The wound was closed using 4-0 proline single. This was a [-] layer repair. A sterile dressing was applied. The patient was advised to keep the dressing clean and dry. Patient tolerated the procedure well. Diagnosis Primary Impression: Facial laceration Qualified Codes: S01.81XA - Laceration without foreign body of other part of head, initial encounter Additional Impression: Head injury Qualified Codes: S09.90XA - Unspecified injury of head, initial encounter Patient Instructions: General Instructions Departure Forms: Tests/Procedures Additional Instruction: Suture removal in 7 days, keep wounds clean with bacitracin dressings Please follow up with your primary care doctor in 2-3 days Return to the ER if symptoms worsen or progress Return to the ER as needed Condition: Stable Raj Woodward Sep 29, 2017 23:50
--- NOTE | 2017-09-30 00:35 | RADRPT ---
EXAM DATE/TIME: 09/30/2017 00:05 [facility] COMPARISON: No previous studies available for comparison. INDICATIONS : Pain due to fall. MEDICAL HISTORY : Hypertension. Cerebrovascular disease. Dementia SURGICAL HISTORY : None. ENCOUNTER: Initial ACUITY: 1 day PAIN SCORE: Non-responsive. LOCATION: Right knee FINDINGS: There is mild tricompartment joint space narrowing and tiny marginal osteophytes present. No evidence of joint effusion or fracture. Mineralization is normal. No destructive changes. Vascular calcificat ions in popliteal artery. CONCLUSION: No acute bony process Chandler Armijo MD on September 30, 2017 at 0:31 Board Certified Radiologist. This report was verified electronically.
--- NOTE | 2017-09-30 00:48 | RADRPT ---
EXAM DATE/TIME: 09/30/2017 00:08 [facility] COMPARISON: No previous studies available for comparison. INDICATIONS : Pain due to fall. MEDICAL HISTORY : Hypertension. Cerebrovascular disease. Dementia SURGICAL HISTORY : None. ENCOUNTER: Initial ACUITY: 1 day PAIN SCORE: Non-responsive. LOCATION: Left knee FINDINGS: Medial compartment joint space narrowing. Mild osteophyte formation. No evidence of fracture dislocat ion or joint effusion. Vascular calcifications noted. CONCLUSION: Arthritic changes. No acute bony findings. Chandler Armijo MD on September 30, 2017 at 0:46 Board Certified Radiologist. This report was verified electronically.
== END 2017-09-30 02:42 | disposition home or self-care (01) ==
LOC: NEPD 22:07
DX: S09.90XA Unspecified injury of head, initial encounter (principal); S01.112A Laceration without foreign body of left eyelid and periocular area, initial encounter; I48.91 Unspecified atrial fibrillation; F03.90 Unspecified dementia, unspecified severity, without behavioral disturbance, psychotic disturbance, mood disturbance, and anxiety; I10 Essential (primary) hypertension; W18.00XA Striking against unspecified object with subsequent fall, initial encounter; Z86.73 Personal history of transient ischemic attack (TIA), and cerebral infarction without residual deficits; Z23 Encounter for immunization; Z79.899 Other long term (current) drug therapy
CPT/HCPCS: 12013; 70450; 72125; 72128; 73564; 90715; 96372